=== PATIENT | female | born 1950 | race American Indian/Alaskan Native ===

== ENCOUNTER 2017-09-03 12:39 | Emergency (ER) | payer MEDICARE, OTHER ==
[2017-09-03] MEDS ORDERED: Sodium Chloride 0.9% 10 ML Syringe FLUSH PRN ×2 (13:04→14:12)
[2017-09-03] MEDS ORDERED: Sodium Chloride 0.9% 1,000 ML IV STA (13:04)
[2017-09-03] MEDS ORDERED: Famotidine 20 MG/2 ML SDV IVPUSH ONE (13:05)
[2017-09-03] MEDS ORDERED: Iopamidol 612 MG/ML 100 ML Bottle IVPUSH ONE (14:12)
--- NOTE | 2017-09-03 15:15 | EDM.PDOC ---
ED HPI GENERAL MEDICAL PROBLEM - General Chief Complaint: Abdominal Pain Stated Complaint: [facility] Time Seen by Provider: 09/03/17 12:53 Source of Information: Reports: Patient, EMS, Family History Limitations: Reports: No Limitations - History of Present Illness INITIAL COMMENTS - FREE TEXT/NARRATIVE: The patient presents by [facility] for abdominal pain, nausea, vomiting and diarrhea. This started earlier today. The pain is in the epigastric area. She admits to have a history of gastritis and she is on medicine for this. They took some medicine away last month. She has no fever, chills, cough, congestion, runny nose, chest pain or shortness of breath. EMS gave her morphine and zofran and that helped. Onset: Sudden Duration: Hour(s): Location: Reports: Abdomen Quality: Reports: Sharp Severity: Severe Improves with: Reports: None Worsens with: Reports: None Associated Symptoms: Reports: Nausea/Vomiting. Denies: Chest Pain, Cough, Fever /Chills, Headaches, Shortness of Breath - Related Data Allergies Allergy/AdvReac Type Severity Reaction Status Date / Time Penicillins Allergy Cannot Verified 09/03/17 12:54 Remember Home Meds: Home Meds Hydrocodone/Acetaminophen [Hydrocodon-Acetaminophen 5-325] 1 - 2 each PO Q6HR PRN #20 tablet 09/03/17 [Rx] Ranitidine HCl [Zantac] 150 mg PO DAILY #30 tablet 09/03/17 [Rx] Past Medical History Cardiovascular History: Reports: Afib Social & Family History - Tobacco Use Smoking Status *Q: Current Every Day Smoker Years of Tobacco use: 40 Packs/Tins Daily: 0.5 ED ROS GENERAL - Review of Systems Review Of Systems: See Below Constitutional: Reports: No Symptoms HEENT: Reports: No Symptoms Respiratory: Reports: No Symptoms Cardiovascular: Reports: No Symptoms Endocrine: Reports: No Symptoms GI/Abdominal: Reports: Abdominal Pain, Diarrhea, Nausea, Vomiting : Reports: No Symptoms Musculoskeletal: Reports: No Symptoms ED EXAM, GI/ABD - Physical Exam Exam: See Below Exam Limited By: No Limitations General Appearance: Alert, No Apparent Distress Ears: Normal External Exam Nose: Normal Inspection Head: Atraumatic, Normocephalic Neck: Normal Inspection Respiratory/Chest: No Respiratory Distress, Lungs Clear, Normal Breath Sounds Cardiovascular: Regular Rate, Rhythm, No Edema, No Murmur GI/Abdominal Exam: Soft, No Organomegaly, No Mass, Tender (Mild to moderate tenderness to the epigastric region) Course - Vital Signs Last Recorded V/S: Last Vital Signs Temp 99.1 F 09/03/17 12:51 Pulse 96 09/03/17 12:51 Resp 16 09/03/17 12:51 BP 135/91 H 09/03/17 12:51 Pulse Ox 99 09/03/17 12:51 - Orders/Labs/Meds Orders: Active Orders 24 hr Category Date Time Status Peripheral IV Care [RC] . DIRECTED Care 09/03/17 13:05 Active Abdomen Pelvis w Cont [CT] Stat Exams 09/03/17 13:04 Taken UA W/MICROSCOPIC [URIN] Stat Lab 09/03/17 14:50 Ordered Sodium Chloride 0.9% [Saline Flush] Med 09/03/17 13:04 Active 10 ml FLUSH ASDIRECTED PRN Sodium Chloride 0.9% [Saline Flush] Med 09/03/17 14:12 Active 10 ml FLUSH ONETIME PRN Peripheral IV Insertion Adult [OM.PC] Stat Oth 09/03/17 13:04 Ordered Medication Orders Sodium Chloride (Saline Flush) 10 ml FLUSH ASDIRECTED PRN PRN Reason: Keep Vein Open Last Admin: 09/03/17 13:25 Dose: 10 ml Sodium Chloride (Saline Flush) 10 ml FLUSH ONETIME PRN PRN Reason: IV FLUSH Last Admin: 09/03/17 14:23 Dose: 10 ml Labs: Laboratory Tests 09/03/17 09/03/17 09/03/17 Range/Units 13:18 13:18 13:18 WBC 6.44 (3.98-10.04) K/mm3 RBC 5.19 (3.98-5.22) M/mm3 Hgb 16.4 H (11.2-15.7) gm/L Hct 46.4 H (34.1-44.9) % MCV 89.4 (79.4-94.8) fl MCH 31.6 (25.6-32.2) pg MCHC 35.3 (32.2-35.5) g/dl RDW Std Deviation 44.2 (36.4-46.3) fL Plt Count 278 (182-369) K/mm3 MPV 9.3 L (9.4-12.3) fl Neut % (Auto) 82.5 H (34.0-71.1) % Lymph % (Auto) 12.3 L (19.3-51.7) % Ross % (Auto) 4.2 L (4.7-12.5) % Eos % (Auto) 0.2 L (0.7-5.8) Baso % (Auto) 0.5 (0.1-1.2) % Neut # (Auto) 5.32 (1.56-6.13) K/mm3 Lymph # (Auto) 0.79 L (1.18-3.74) K/mm3 Ross # (Auto) 0.27 (0.24-0.36) K/mm3 Eos # (Auto) 0.01 L (0.04-0.36) K/mm3 Baso # (Auto) 0.03 (0.01-0.08) K/mm3 Sodium 137 (136-145) mEq/L Potassium 4.5 (3.5-5.1) mEq/L Chloride 102 (98-107) mEq/L Carbon Dioxide 25 (21-32) mEq/L Anion Gap 14.5 (5-15) BUN 10 (7-18) mg/dL Creatinine 1.4 H (0.55-1.02) mg/dL Est Cr Clr Drug Dosing 33.14 mL/min Estimated GFR (MDRD) 38 (>60) mL/min BUN/Creatinine Ratio 7.1 L (14-18) Glucose 200 H (80-115) mg/dL Calcium 8.8 (8.5-10.1) mg/dL Total Bilirubin 0.8 (0.2-1.0) mg/dL AST 20 (15-37) U/L ALT 23 (14-59) U/L Alkaline Phosphatase 117 H (46-116) U/L Total Protein 7.3 (6.4-8.2) g/dl Albumin 3.5 (3.4-5.0) g/dl Globulin 3.8 gm/dL Albumin/Globulin Ratio 0.9 L (1-2) Lipase 112 (73-393) U/L Ethyl Alcohol 0.00 (0.00) gm% Meds: Medications Generic Name Dose Route Start Last Admin Trade Name Freq PRN Reason Stop Dose Admin Sodium Chloride 10 ml 09/03/17 13:04 09/03/17 13:25 Saline Flush FLUSH 10 ml ASDIRECTED PRN Administration Keep Vein Open Sodium Chloride 10 ml 09/03/17 14:12 09/03/17 14:23 Saline Flush FLUSH 10 ml ONETIME PRN Administration IV FLUSH Discontinued Medications Generic Name Dose Route Start Last Admin Trade Name Sharon PRN Reason Stop Dose Admin Famotidine 20 mg 09/03/17 13:05 09/03/17 13:25 Pepcid IVPUSH 09/03/17 13:06 20 mg ONETIME ONE Administration Sodium Chloride 1,000 mls @ 1,000 mls/hr 09/03/17 13:04 09/03/17 13:25 Normal Saline IV 09/03/17 14:03 1,000 mls/hr .BOLUS STA Administration Iopamidol 100 ml 09/03/17 14:12 09/03/17 14:23 Isovue-300 (61%) IVPUSH 09/03/17 14:13 80 ml ONETIME ONE Administration - Re-Assessments/Exams Free Text/Narrative Re-Assessment/Exam: 09/03/17 15:15 I ordered an IV NS, labs, UA and a CT of her abdomen and pelvis. Her CBC looks good. Her Creatinine was elevated at 1.4. Her glucose was elevated at 200. Her lipase was negative. Her CT shows mild thickening of the wall of the stomach with hiatal hernia present. Findings may be consistent with gastritis. There is a focal hypodense mass in the left adrenal gland, consistent in appearance with a benign adrenal adenoma. 3.7 cm cyst on the midpole of the left kidney. She feels much better now. I will get her back on zantac. She is on a PPI now. I will also give her something for pain if it comes back. Departure - Departure Time of Disposition: 15:25 Disposition: Home, Self-Care 01 Condition: Good Clinical Impression: Gastritis Qualifiers: Gastritis type: unspecified gastritis Chronicity: acute Gastritis bleeding: without bleeding Qualified Code(s): K29.00 - Acute gastritis without bleeding - Discharge Information *PRESCRIPTION DRUG MONITORING PROGRAM REVIEWED*: No *COPY OF PRESCRIPTION DRUG MONITORING REPORT IN PATIENT DIONISIO: No Prescriptions: Hydrocodone/Acetaminophen [Hydrocodon-Acetaminophen 5-325] 1 - 2 each PO Q6HR PRN #20 tablet PRN Reason: Pain Ranitidine HCl [Zantac] 150 mg PO DAILY #30 tablet Referrals: PCP,None [Primary Care Provider] - Additional Instructions: Keep taking your medicine as prescribed. Take the zantac again. I also gave you something for pain if it gets worse. Follow up with your doctor and please return if you are worse. - My Orders Last 24 Hours: My Active Orders 09/03/17 13:04 Abdomen Pelvis w Cont [CT] Stat Sodium Chloride 0.9% [Saline Flush] 10 ml FLUSH ASDIRECTED PRN Peripheral IV Insertion Adult [OM.PC] Stat 09/03/17 13:05 Peripheral IV Care [RC] . DIRECTED 09/03/17 14:12 Sodium Chloride 0.9% [Saline Flush] 10 ml FLUSH ONETIME PRN 09/03/17 14:50 UA W/MICROSCOPIC [URIN] Stat - Assessment/Plan Last 24 Hours: My Active Orders 09/03/17 13:04 Abdomen Pelvis w Cont [CT] Stat Sodium Chloride 0.9% [Saline Flush] 10 ml FLUSH ASDIRECTED PRN Peripheral IV Insertion Adult [OM.PC] Stat 09/03/17 13:05 Peripheral IV Care [RC] . DIRECTED 09/03/17 14:12 Sodium Chloride 0.9% [Saline Flush] 10 ml FLUSH ONETIME PRN 09/03/17 14:50 UA W/MICROSCOPIC [URIN] Stat
--- NOTE | 2017-09-04 11:01 | CT ---
CT abdomen and pelvis Technique: Multiple axial sections were obtained from above the dome of the diaphragm inferiorly through the pubic symphysis. Intravenous contrast was utilized. No oral contrast has been given. Delayed images were obtained through the bladder. Comparison: No prior abdominal imaging. Findings: Small portion of the visualized lung bases shows nothing acute. Minimal hiatal hernia is noted. Questionable wall thickening within the stomach. Liver shows no focal abnormality. Spleen appears within normal limits. Pal of the left adrenal gland is slightly full which is believed to be incidental. Right adrenal gland is unremarkable. Cyst is noted off the left kidney measuring 4.1 cm in size. Kidneys otherwise are within normal limits. Delayed images show contrast within both distal ureters and within the bladder. Pancreas appears within normal limits. Gallbladder is not visualized. Aorta shows atherosclerotic change which continues into the iliac vessels. No aneurysm is identified. No pelvic mass or adenopathy is seen. Appendix is not visualized with certainty. Bone window settings were reviewed with most prominent finding being degenerative apophyseal changes at L4-L5 and L5-S1. Impression: 1. Questionable wall thickening within the stomach. Difficult to exclude gastritis. Please correlate with the patient's symptoms. 2. Other incidental findings as noted above. Diagnostic code #3 I agree with preliminary report issued by [facility] ([facility] report finalized on 09/03/17, 3:56 PM Central Time)
== END 2017-09-03 15:30 | disposition home or self-care (01) ==
LOC: JD.ED 12:39
DX: K29.00 Acute gastritis without bleeding (principal); F17.210 Nicotine dependence, cigarettes, uncomplicated; I48.91 Unspecified atrial fibrillation; Z88.0 Allergy status to penicillin
CPT/HCPCS: 36415; 74177; 80053; 81001; 83690; 85025; 96361; 96374; 99285; G0480; J3490; J7040; J7050; Q9967; 99284

== ENCOUNTER 2018-06-12 10:54 | Inpatient (IN) | payer MEDICARE, OTHER ==
[2018-06-12] MEDS ORDERED: Sodium Chloride 0.9% 1,000 ML IV ONE ×2 (11:58→13:14)
[2018-06-12] MEDS ORDERED: Ondansetron 4 MG/2 ML SDV IVPUSH ONE (12:04)
[2018-06-12] MEDS ORDERED: HYDROmorphone 1 MG/ML Syringe IVPUSH ONE (12:04)
--- NOTE | 2018-06-12 12:14 | EDM.PDOC ---
ED HPI GENERAL MEDICAL PROBLEM - General Chief Complaint: Lower Extremity Injury/Pain Stated Complaint: R LEG PAIN Time Seen by Provider: 06/12/18 11:15 Source of Information: Reports: Patient History Limitations: Reports: No Limitations - History of Present Illness INITIAL COMMENTS - FREE TEXT/NARRATIVE: 67 yo F h/o DM2, Afib on ASA and Cardizem, COPD comes in today with for worsening R LL pain that started 3 days ago. The pain starts from her R pinky toe where she had 2 ulcers "cleaned out by podiatry" about 1 month ago, radiates up the leg to the thigh. There is increased warmth and erythema to the area, painful to touch. She describes the pain as "110/10", comes and goes, is sharp in nature. Resting is the only thing that makes it better, movement/ walking makes it worse. She denies any recent travel or long car rides, but states she has been resting in bed for the past 3 days. She denies any F/C, V/D , constipation. She also c/o nausea, decreased appetite, and a productive cough x 3-4 weeks. The cough has been getting worse, greenish/yellowish sputum. She is a 1/2 ppd smoker x 53 years. PCP: KANA Grijalva at [facility]. She is a Full Code. Right Lower Leg Pain Score (Numeric/FACES): 8 - Related Data Allergies Allergy/AdvReac Type Severity Reaction Status Date / Time Penicillins Allergy Cannot Verified 06/12/18 11:15 Remember Home Meds: Home Meds Hydrocodone/Acetaminophen [Hydrocodon-Acetaminophen 5-325] 1 - 2 each PO Q6HR PRN #20 tablet 09/03/17 [Rx] Ranitidine HCl [Zantac] 150 mg PO DAILY #30 tablet 09/03/17 [Rx] Albuterol/Ipratropium [Combivent Respimat] 4 gm IH DAILY 06/12/18 [History] Albuterol/Ipratropium [DuoNeb 3.0-0.5 MG/3 ML] 3 ml INH DAILY PRN 06/12/18 [ History] Aspirin 81 mg PO DAILY 06/12/18 [History] Diltiazem HCl [Cardizem] 30 mg PO DAILY 06/12/18 [History] Fish Oil/[place]-3 Fatty Acids [Fish Oil] 1 each PO DAILY 06/12/18 [History] Fluticasone/Salmeterol [Advair 250-50 Diskus] 1 puff INH DAILY 06/12/18 [History ] Gabapentin [Neurontin] 800 mg PO DAILY 06/12/18 [History] Loratadine 10 mg PO DAILY 06/12/18 [History] Metoprolol Succinate [Toprol XL] 25 mg PO DAILY 06/12/18 [History] Mirtazapine 45 mg PO DAILY 06/12/18 [History] Montelukast [Singulair] 10 mg PO DAILY 06/12/18 [History] Pantoprazole [ProTONIX] 40 mg PO DAILY 06/12/18 [History] Vit #76/Iron,Carb/Fa [Prenatabs Rx] 1 each PO DAILY 06/12/18 [History] Venlafaxine [Effexor XR] 150 mg PO DAILY 06/12/18 [History] Past Medical History Cardiovascular History: Reports: Afib Respiratory History: Reports: COPD Dermatologic History: Reports: Other (See Below) Other Dermatologic History: infected toenail Social & Family History - Tobacco Use Smoking Status *Q: Current Every Day Smoker Years of Tobacco use: 50 Packs/Tins Daily: 1 - Alcohol Use Days Per Week of Alcohol Use: 7 Number of Drinks Per Day: 2 Total Drinks Per Week: 14 - Recreational Drug Use Recreational Drug Use: No Review of Systems - Review of Systems Review Of Systems: See Below Constitutional: Reports: No Symptoms. Denies: Chills, Fever Eyes: Reports: No Symptoms Ears: Reports: No Symptoms Nose: Reports: No Symptoms Mouth/Throat: Reports: No Symptoms Respiratory: Reports: Cough, Sputum (yellow-green). Denies: Wheezing, Pleuritic Chest Pain Cardiovascular: Reports: No Symptoms. Denies: Chest Pain, Palpitations GI/Abdominal: Reports: Decreased Appetite, Nausea. Denies: Abdominal Pain, Constipation, Diarrhea, Vomiting Genitourinary: Reports: No Symptoms Musculoskeletal: Reports: No Symptoms Skin: Reports: No Symptoms Neurological: Reports: Difficulty Walking (d/t R leg pain), Weakness. Denies: Headache, Numbness, Tingling ED EXAM, GENERAL - Physical Exam Exam: See Below Exam Limited By: No Limitations General Appearance: Alert, WD/WN, Moderate Distress Eye Exam: Bilateral Eye: EOMI, Normal Inspection, PERRL Ears: Normal External Exam, Hearing Grossly Normal Nose: Normal Inspection, Normal Mucosa, No Blood Throat/Mouth: Normal Oropharynx, Normal Voice, No Airway Compromise Neck: Normal Inspection, Supple, Non-Tender, Full Range of Motion Respiratory/Chest: No Respiratory Distress, No Accessory Muscle Use, Chest Non- Tender, Rales (throughout lung barrera) Cardiovascular: Normal Peripheral Pulses, Regular Rate, Rhythm, No Edema, No Gallop, No JVD, No Murmur, No Rub Peripheral Pulses: 3+: Posterior Tibial (L), Posterior Tibial (R), Dorsalis Pedis (L), Dorsalis Pedis (R) GI/Abdominal: Normal Bowel Sounds, Soft, Non-Tender, No Organomegaly, No Distention, No Abnormal Bruit, No Mass Extremities: Normal Range of Motion, No Pedal Edema, Normal Capillary Refill, Leg Pain (R lower leg), Increased Warmth (R leg, starts from R big toe up to thigh), Redness (R leg, starts from R big toe up to garcia), Other (bandage over removed toenail on L big toe) Psychiatric: Normal Affect, Normal Mood Skin Exam: Warm, Dry, Intact, Erythema (R leg, starts from R big toe up to garcia) , Increased Warmth (R leg, starts from R big toe up to thigh) Course - Vital Signs Last Recorded V/S: Last Vital Signs Temp 97.8 F 06/12/18 11:13 Pulse 94 06/12/18 11:13 Resp 16 06/12/18 11:13 BP 128/83 06/12/18 11:13 Pulse Ox 97 06/12/18 11:13 - Orders/Labs/Meds Orders: Active Orders 24 hr Category Date Time Status Admission Status [Patient Status] [ADT] Routine ADT 06/12/18 14:56 Ordered CULTURE BLOOD [BC] Stat Lab 06/12/18 12:39 Received CULTURE BLOOD [BC] Stat Lab 06/12/18 12:54 Received Blood Culture x2 Reflex Set [OM.PC] Stat Oth 06/12/18 11:58 Ordered Code Status [Resuscitation Status] Stat Resus Stat 06/12/18 15:01 Ordered Labs: Laboratory Tests 06/12/18 06/12/18 06/12/18 Range/Units 12:10 12:10 12:39 WBC 15.98 H (3.98-10.04) K/mm3 RBC 4.48 (3.98-5.22) M/mm3 Hgb 14.2 D (11.2-15.7) gm/L Hct 39.8 (34.1-44.9) % MCV 88.8 (79.4-94.8) fl MCH 31.7 (25.6-32.2) pg MCHC 35.7 H (32.2-35.5) g/dl RDW Std Deviation 42.8 (36.4-46.3) fL Plt Count 215 (182-369) K/mm3 MPV 9.5 (9.4-12.3) fl Neut % (Auto) 88.1 H (34.0-71.1) % Lymph % (Auto) 6.2 L (19.3-51.7) % [place] % (Auto) 5.3 (4.7-12.5) % Eos % (Auto) 0 L (0.7-5.8) Baso % (Auto) 0.1 (0.1-1.2) % Neut # (Auto) 14.08 H (1.56-6.13) K/mm3 Lymph # (Auto) 0.99 L (1.18-3.74) K/mm3 [place] # (Auto) 0.85 H (0.24-0.36) K/mm3 Eos # (Auto) 0.00 L (0.04-0.36) K/mm3 Baso # (Auto) 0.02 (0.01-0.08) K/mm3 Manual Slide Review Abnormal smear Sodium 131 L (136-145) mEq/L Potassium 3.9 (3.5-5.1) mEq/L Chloride 95 L (98-107) mEq/L Carbon Dioxide 24 (21-32) mEq/L Anion Gap 15.9 H (5-15) BUN 17 (7-18) mg/dL Creatinine 1.5 H (0.55-1.02) mg/dL Est Cr Clr Drug Dosing 30.52 mL/min Estimated GFR (MDRD) 35 (>60) mL/min BUN/Creatinine Ratio 11.3 L (14-18) Glucose 108 (80-115) mg/dL Lactic Acid 1.0 (0.4-2.0) mmol/L Calcium 8.6 (8.5-10.1) mg/dL Total Bilirubin 0.8 (0.2-1.0) mg/dL AST 28 (15-37) U/L ALT 23 (14-59) U/L Alkaline Phosphatase 147 H (46-116) U/L C-Reactive Protein 21.6 H* (<1.0) mg/dL Total Protein 7.1 (6.4-8.2) g/dl Albumin 2.7 L (3.4-5.0) g/dl Globulin 4.4 gm/dL Albumin/Globulin Ratio 0.6 L (1-2) Meds: Medications Discontinued Medications Generic Name Dose Route Start Last Admin Trade Name Freq PRN Reason Stop Dose Admin Ceftriaxone Sodium 2 gm 06/12/18 14:49 06/12/18 14:59 Rocephin IVPUSH 06/12/18 14:50 2 gm ONETIME ONE Administration Hydromorphone HCl 0.5 mg 06/12/18 12:04 06/12/18 12:58 Dilaudid IVPUSH 06/12/18 12:05 0.5 mg ONETIME ONE Administration Sodium Chloride 1,000 mls @ 999 mls/hr 06/12/18 11:58 06/12/18 12:59 Normal Saline IV 06/12/18 12:58 999 mls/hr ONETIME ONE Administration Vancomycin HCl 1 gm/ Sodium 250 mls @ 250 mls/hr 06/12/18 12:30 06/12/18 12: 59 Chloride IV 06/12/18 13:29 250 mls/hr ONETIME ONE Administration Sodium Chloride 1,000 mls @ 999 mls/hr 06/12/18 13:14 06/12/18 15:00 Normal Saline IV 06/12/18 14:14 999 mls/hr ONETIME ONE Administration Ondansetron HCl 4 mg 06/12/18 12:04 06/12/18 12:58 Zofran IVPUSH 06/12/18 12:05 4 mg ONETIME ONE Administration - Re-Assessments/Exams Free Text/Narrative Re-Assessment/Exam: 06/12/18 12:06 Ordered CBC, CMP, CRP, Lactic Acid, Blood Cultures Vancomycin 1g Dilaudid 0.5mg, Zofran 4mg IV push, 1L Bolus IV NS CXR 2V, Venous Doppler U/S 06/12/18 13:[address] Mallory and myself- nothing acute seen, hyperinflated likely 2/2 COPD. 06/12/18 13:12 CBC impressive for WBC 15.98, MCHC 35.7, Neut 88.1%, Lymph 6.2% CMP impressive for Na 131, Cl 95, AGap 15.9, Cr 1.5, GFR 35, Alk Phos 147, Albumin 2.7 CRP, Lactic Acid pending 06/12/18 13:15 Ordered another 1L IV NS Bolus 06/12/18 13:42 CRP 21.6 Lactic Acid 1 (WNL) Venous Doppler U/S pending 06/12/18 13:59 Doppler U/S negative for DVT, popliteal 2.63cm cyst present. Erythema and warmth traveling from big toe to above the R knee, with high WBC and CRP, and unable to walk, will likely need to be admitted, will call Dr. Collier. Unable to get through to Dr. Collier. Will try again in a little while. 06/12/18 14:[address] Collier. He has accepted the patient to Med Surg w/ Telemetry for left leg infection. He would like Zosyn to be added to the already given Vanco, however she is allergic to PCN so we will not be able to start. He has instead asked for Rocephin. Departure - Departure Time of Disposition: 15:03 Disposition: Admitted As Inpatient 67 Condition: Fair Clinical Impression: Cellulitis in diabetic foot - Discharge Information *PRESCRIPTION DRUG MONITORING PROGRAM REVIEWED*: Not Applicable *COPY OF PRESCRIPTION DRUG MONITORING REPORT IN PATIENT DIONISIO: Not Applicable Referrals: PCP,None [Primary Care Provider] - Forms: ED Department Discharge - My Orders Last 24 Hours: My Active Orders 06/12/18 11:58 Blood Culture x2 Reflex Set [OM.PC] Stat 06/12/18 12:39 CULTURE BLOOD [BC] Stat 06/12/18 12:54 CULTURE BLOOD [BC] Stat 06/12/18 14:56 Admission Status [Patient Status] [ADT] Routine 06/12/18 15:01 Code Status [Resuscitation Status] Stat - Assessment/Plan Last 24 Hours: My Active Orders 06/12/18 11:58 Blood Culture x2 Reflex Set [OM.PC] Stat 06/12/18 12:39 CULTURE BLOOD [BC] Stat 06/12/18 12:54 CULTURE BLOOD [BC] Stat 06/12/18 14:56 Admission Status [Patient Status] [ADT] Routine 06/12/18 15:01 Code Status [Resuscitation Status] Stat
[2018-06-12] MEDS ORDERED: Vancomycin 500 MG SDV IV SCH (12:15)
--- NOTE | 2018-06-12 13:18 | CR ---
Chest: Two views of the chest were obtained. Comparison: No previous study. Heart size is normal. Tortuous thoracic aorta is seen. Lungs are clear with no acute parenchymal change. Lungs appear slightly hyperinflated suggesting some emphysematous change. Bony structures are within normal limits for the patient's age. Impression: 1. Nothing acute is seen on two-view chest x-ray. Diagnostic code #2
[2018-06-12] MEDS ORDERED: cefTRIAXone 2 GM Vial IVPUSH ONE (14:49)
--- NOTE | 2018-06-12 14:51 | US ---
Right lower extremity deep venous ultrasound: Duplex and color flow imaging was obtained of the right common femoral, proximal greater saphenous, superficial femoral, popliteal, posterior tibial and peroneal veins. Left common femoral vein was also evaluated. Findings: Normal phasic flow, augmentation and compression are seen. Complicated popliteal cyst noted posteriorly on the right side measuring up to 2.6 cm. Normal architecture of a lymph node within the right upper thigh is seen which measures 3.8 cm and has normal echogenic center and hypoechoic rim. Impression: 1. Popliteal cyst. 2. No evidence of deep venous thrombosis within the right lower extremity or within the left common femoral vein. Diagnostic code #2
[2018-06-12] MEDS ORDERED: ACETAMINOPHEN PO PRN (17:03)
[2018-06-12] MEDS ORDERED: Albuterol/Ipratropium 3.0-0.5 MG/3 ML Neb Soln INH PRN (17:03)
[2018-06-12] MEDS ORDERED: HYDROCODONE PO PRN (17:03)
[2018-06-12] MEDS ORDERED: Metoprolol Tartrate 5 MG/5 ML SDV IVPUSH PRN (17:05)
[2018-06-12] MEDS ORDERED: hydrALAZINE 20 MG/ML SDV IVPUSH PRN (17:05)
[2018-06-12] MEDS ORDERED: Acetaminophen/HYDROcodone 325-5 MG Tab PO PRN (17:08)
[2018-06-12] MEDS ORDERED: Polyethylene Glycol 3350 Powder 17 GM Packet PO PRN (17:08)
[2018-06-12] MEDS ORDERED: HYDROmorphone 1 MG/ML Syringe IVPUSH PRN (17:08)
[2018-06-12] MEDS ORDERED: Acetaminophen 325 MG Tab PO PRN (17:08)
[2018-06-12] MEDS ORDERED: LORazepam 2 MG/ML SDV IV PRN (17:08)
[2018-06-12] MEDS ORDERED: Albuterol/Ipratropium 3.0-0.5 MG/3 ML Neb Soln NEB PRN (17:08)
[2018-06-12] MEDS ORDERED: Docusate Sodium 100 MG Cap PO PRN (17:08)
[2018-06-12] MEDS ORDERED: Bisacodyl 5 MG Tab PO PRN (17:08)
[2018-06-12] MEDS ORDERED: Temazepam 15 MG Cap PO PRN (20:59)
[2018-06-12] MEDS: Sodium Chloride 0.9% 1,000 ML IV SCH (21:21)
[2018-06-12] MEDS: Acetaminophen/HYDROcodone 325-5 MG Tab PO PRN (22:43)
--- NOTE | 2018-06-13 00:25 | PCM.HP ---
H&P History of Present Illness - General Date of Service: 06/13/18 Admit Problem/Dx: Admission Diagnosis/Problem Admission Diagnosis/Problem Cellulitis in diabetic foot Source of Information: Patient, Family, Old Records, RN Notes Reviewed History Limitations: Reports: Physical Impairment - History of Present Illness Initial Comments - Free Text/Narative: This is a 67 yo [place]/ female with past medical hx/o Hx/o Afib , COPD/Asthma, HTN, DM2 diet controlled, CKD Stag 2-3, Chronic Pain, Peripheral Neuropathy, Depression, Hx/o Significant Weight Loss and Nicotine Dependence who comes in for worsening right lower extremity pain that started 3 days ago. Her pain starts in her pinky toe and radiates all the way up to her thigh. Her pain is sharp in nature and is associated with warmth and erythema as well as tenderness on palpation. No obvious edema can be appreciated. Her pain worsens with walking or movement but gets better with rest. She denies any fever or chills. Her initial work up in ED shows a CBC remarkable for WBC of 15.98, MCHC of 35.7 , Neutrophils of 88.1%, and Lymphocytes of 6.2%. Her chemistry is significant for Na of 131, Cl of 95, AG of 15.9, Cr of 1.5, Alk Phos of 147, CRP of 21.6, and Albumin of 2.7. Duplex U/S of her left lower leg report reads popliteal cyst. No evidence of DVT within the right lower extremity or within the left common femoral vein. Patient is being admitted primarily for medical treatment of right lower leg cellulitis. She is full code. Right Lower Leg Pain Score (Numeric/FACES): 8 - Related Data Allergies/Adverse Reactions: Allergies Allergy/AdvReac Type Severity Reaction Status Date / Time Penicillins Allergy Cannot Verified 06/12/18 16:13 Remember Home Medications: Home Meds Hydrocodone/Acetaminophen [Hydrocodon-Acetaminophen 5-325] 1 - 2 each PO Q6HR PRN #20 tablet 09/03/17 [Rx] Ranitidine HCl [Zantac] 150 mg PO DAILY #30 tablet 09/03/17 [Rx] Albuterol/Ipratropium [Combivent Respimat] 2 puff IH DAILY 06/12/18 [History] Albuterol/Ipratropium [DuoNeb 3.0-0.5 MG/3 ML] 3 ml INH DAILY PRN 06/12/18 [ History] Aspirin 81 mg PO DAILY 06/12/18 [History] Diltiazem HCl [Cardizem] 30 mg PO DAILY 06/12/18 [History] Fish Oil/[place]-3 Fatty Acids [Fish Oil] 1 each PO DAILY 06/12/18 [History] Fluticasone/Salmeterol [Advair 250-50 Diskus] 1 puff INH DAILY 06/12/18 [History ] Gabapentin [Neurontin] 800 mg PO DAILY 06/12/18 [History] Loratadine 10 mg PO DAILY 06/12/18 [History] Metoprolol Succinate [Toprol XL] 25 mg PO DAILY 06/12/18 [History] Mirtazapine 45 mg PO DAILY 06/12/18 [History] Montelukast [Singulair] 10 mg PO DAILY 06/12/18 [History] Pantoprazole [ProTONIX] 40 mg PO DAILY 06/12/18 [History] Vit #76/Iron,Carb/Fa [Prenatabs Rx] 1 each PO DAILY 06/12/18 [History] Venlafaxine [Effexor XR] 150 mg PO DAILY 06/12/18 [History] Past Medical History HEENT History: Reports: Impaired Vision Other HEENT History: wears glasses Cardiovascular History: Reports: Afib, Angina, High Cholesterol, Hypertension Respiratory History: Reports: Asthma, Bronchitis, Recurrent, COPD Gastrointestinal History: Reports: Chronic Constipation Genitourinary History: Reports: Chronic Renal Insuffiency, Renal Calculus 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: Musculoskeletal History: Reports: Arthritis, Osteoporosis Psychiatric History: Reports: Bipolar Endocrine/Metabolic History: Reports: Diabetes, Type II Other Endocrine/Metabolic History: reports was diabetic before lost weight 1 year ago Dermatologic History: Reports: Eczema, Other (See Below) Other Dermatologic History: infected toenail, diabetic foot ulcers - Past Surgical History HEENT Surgical History: Reports: None Social & Family History - Family History Family Medical History: Noncontributory - Tobacco Use Smoking Status *Q: Current Every Day Smoker Years of Tobacco use: 43 Packs/Tins Daily: 0.5 Used Tobacco, but Quit: No Second Hand Smoke Exposure: Yes - Caffeine Use Caffeine Use: Reports: Coffee Other Caffeine Use: 1 pot a day - Alcohol Use Days Per Week of Alcohol Use: 7 Number of Drinks Per Day: 2 Total Drinks Per Week: 14 - Recreational Drug Use Recreational Drug Use: No H&P Review of Systems - Review of Systems: Review Of Systems: ROS reveals no pertinent complaints other than HPI. Exam - Exam Exam: See Below - Vital Signs Vital Signs: Last Vital Signs Temp 37.1 C 06/12/18 20:14 Pulse 73 06/12/18 20:14 Resp 17 06/12/18 20:14 BP 98/51 L 06/12/18 20:14 Pulse Ox 94 L 06/12/18 20:14 Weight: 55.384 kg - Exam General: Alert, Oriented, Cooperative HEENT: Conjunctiva Clear, EACs Clear, EOMI, Hearing Intact, Mucosa Moist & [place] , Nares Patent, Normal Nasal Septum, Posterior Pharynx Clear, Pupils Equal, Pupils Reactive Neck: Supple, Trachea Midline Lungs: Normal Respiratory Effort, Rhonchi Cardiovascular: Regular Rate, Regular Rhythm GI/Abdominal Exam: Normal Bowel Sounds, Soft, Non-Tender, No Organomegaly, No Distention, No Abnormal Bruit, No Mass, Pelvis Stable (Female) Exam: Deferred Rectal (Female) Exam: Deferred Back Exam: Normal Inspection, Full Range of Motion Extremities: Normal Range of Motion, Non-Tender, No Pedal Edema, Normal Capillary Refill, Leg Pain, Limited Range of Motion (right lower extremity), Increased Warmth (right lower extremity), Redness. No: Joint Swelling Peripheral Pulses: 2+: Posterior Tibial (L), Posterior Tibial (R), Dorsalis Pedis (L), Dorsalis Pedis (R) Skin: Warm, Dry Skin Alteration Location (Drawings Not To Scale): 1 - fungal infection of the toe nails. numerous chronic skin ulcers 2 - mild erythema w/o obvious edema. warm to the touch Neuro Extensive - Mental Status: Oriented x3, Normal Cognition, Memory Intact Neuro Extensive - Motor, Sensory, Reflexes: CN II-XII Intact, Normal Gait Psychiatric: Alert, Normal Affect, Normal Mood - Patient Data Lab Results Last 24 hrs: Laboratory Results - last 24 hr 06/12/18 06/12/18 06/12/18 Range/Units 12:10 12:10 12:39 WBC 15.98 H (3.98-10.04) K/mm3 RBC 4.48 (3.98-5.22) M/mm3 Hgb 14.2 D (11.2-15.7) gm/L Hct 39.8 (34.1-44.9) % MCV 88.8 (79.4-94.8) fl MCH 31.7 (25.6-32.2) pg MCHC 35.7 H (32.2-35.5) g/dl RDW Std Deviation 42.8 (36.4-46.3) fL Plt Count 215 (182-369) K/mm3 MPV 9.5 (9.4-12.3) fl Neut % (Auto) 88.1 H (34.0-71.1) % Lymph % (Auto) 6.2 L (19.3-51.7) % Forrest % (Auto) 5.3 (4.7-12.5) % Eos % (Auto) 0 L (0.7-5.8) Baso % (Auto) 0.1 (0.1-1.2) % Neut # (Auto) 14.08 H (1.56-6.13) K/mm3 Lymph # (Auto) 0.99 L (1.18-3.74) K/mm3 Forrest # (Auto) 0.85 H (0.24-0.36) K/mm3 Eos # (Auto) 0.00 L (0.04-0.36) K/mm3 Baso # (Auto) 0.02 (0.01-0.08) K/mm3 Manual Slide Review Abnormal smear Sodium 131 L (136-145) mEq/L Potassium 3.9 (3.5-5.1) mEq/L Chloride 95 L (98-107) mEq/L Carbon Dioxide 24 (21-32) mEq/L Anion Gap 15.9 H (5-15) BUN 17 (7-18) mg/dL Creatinine 1.5 H (0.55-1.02) mg/dL Est Cr Clr Drug Dosing 30.52 mL/min Estimated GFR (MDRD) 35 (>60) mL/min BUN/Creatinine Ratio 11.3 L (14-18) Glucose 108 (80-115) mg/dL Lactic Acid 1.0 (0.4-2.0) mmol/L Calcium 8.6 (8.5-10.1) mg/dL Total Bilirubin 0.8 (0.2-1.0) mg/dL AST 28 (15-37) U/L ALT 23 (14-59) U/L Alkaline Phosphatase 147 H (46-116) U/L C-Reactive Protein 21.6 H* (<1.0) mg/dL Total Protein 7.1 (6.4-8.2) g/dl Albumin 2.7 L (3.4-5.0) g/dl Globulin 4.4 gm/dL Albumin/Globulin Ratio 0.6 L (1-2) Result Diagrams: 06/13/18 05:54 06/13/18 05:54 Problem List Initiated/Reviewed/Updated: Yes Orders Last 24hrs: Active Orders 24 hr Category Date Time Status Admission Status [Patient Status] [ADT] Routine ADT 06/12/18 14:56 Active Height and Weight [RC] 04 Care 06/12/18 17:08 Active Intake and Output [RC] QSHIFT Care 06/12/18 17:08 Active VTE/DVT Education [RC] , Care 06/12/18 17:08 Active Vital Signs [RC] Q4HR Care 06/12/18 17:08 Active 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 [CONS] Cons 06/12/18 17:08 Active Routine Consult to Spiritual Care [CONS] Routine Cons 06/12/18 17:08 Active OT Evaluation and Treatment [CONS] Routine Cons 06/12/18 17:08 Active PT Evaluation and Treatment [CONS] Routine Cons 06/12/18 17:08 Active Regular Diet [DIET] Diet 06/12/18 Dinner Active BASIC METABOLIC PANEL,BMP [CHEM] AM Lab 06/13/18 05:11 Ordered BASIC METABOLIC PANEL,BMP [CHEM] AM Lab 06/14/18 05:11 Ordered BASIC METABOLIC PANEL,BMP [CHEM] AM Lab 06/15/18 05:11 Ordered C-REACTIVE PROTEIN [CHEM] AM Lab 06/13/18 05:11 Ordered C-REACTIVE PROTEIN [CHEM] AM Lab 06/14/18 05:11 Ordered C-REACTIVE PROTEIN [CHEM] AM Lab 06/15/18 05:11 Ordered CBC WITH AUTO DIFF [HEME] AM Lab 06/13/18 05:11 Ordered CBC WITH AUTO DIFF [HEME] AM Lab 06/14/18 05:11 Ordered CBC WITH AUTO DIFF [HEME] AM Lab 06/15/18 05:11 Ordered CULTURE BLOOD [BC] Stat Lab 06/12/18 12:39 Received CULTURE BLOOD [BC] Stat Lab 06/12/18 12:54 Received MAGNESIUM [CHEM] AM Lab 06/13/18 05:11 Ordered MAGNESIUM [CHEM] AM Lab 06/14/18 05:11 Ordered MAGNESIUM [CHEM] AM Lab 06/15/18 05:11 Ordered Acetaminophen [Tylenol] Med 06/12/18 17:08 Active 650 mg PO Q4H PRN Acetaminophen/HYDROcodone [[place] 325-5 MG] Med 06/12/18 18:15 Active 1 - 2 tab PO Q6H PRN Acetaminophen/HYDROcodone [[place] 325-5 MG] Med 06/12/18 17:08 Active 1 tab PO Q4H PRN Albuterol/Ipratropium Med 06/13/18 09:00 Pending 4 gm IH DAILY Albuterol/Ipratropium [DuoNeb 3.0-0.5 MG/3 ML] Med 06/12/18 17:03 Active 3 ml INH DAILY PRN Albuterol/Ipratropium [DuoNeb 3.0-0.5 MG/3 ML] Med 06/12/18 17:08 Active 3 ml NEB Q4H PRN Aspirin [Halfprin] Med 06/13/18 09:00 Active 81 mg PO DAILY Bisacodyl [Dulcolax] Med 06/12/18 17:08 Active 5 mg PO DAILY PRN Diltiazem IR [Cardizem] Med 06/13/18 09:00 Active 30 mg PO DAILY Docusate Sodium [Colace] Med 06/12/18 17:08 Active 100 mg PO BID PRN Docusate Sodium/Sennosides [Senna Plus] Med 06/12/18 17:08 Active 1 tab PO BID PRN Enoxaparin [Lovenox] Med 06/13/18 09:00 Active 40 mg SUBCUT DAILY Famotidine [Pepcid] Med 06/13/18 21:00 Active 20 mg PO BEDTIME Fish Oil/Paupack-3 Fatty Acids [Fish Oil] Med 06/13/18 09:00 Pending 1 each PO DAILY Gabapentin [Neurontin] Med 06/13/18 09:00 Active 200 mg PO DAILY Gabapentin [Neurontin] Med 06/13/18 09:00 Active 600 mg PO DAILY HYDROmorphone [Dilaudid] Med 06/12/18 17:08 Active 0.5 mg IVPUSH Q2H PRN LORazepam [Ativan] Med 06/12/18 17:08 Active 0.25 mg IV Q6H PRN Loratadine [Claritin] Med 06/13/18 09:00 Active 10 mg PO DAILY Metoprolol Succinate [Toprol XL] Med 06/13/18 09:00 Active 25 mg PO DAILY Metoprolol Tartrate [Lopressor] Med 06/12/18 17:05 Active 5 mg IVPUSH Q4H PRN Mirtazapine [Remeron] Med 06/13/18 09:00 Active 45 mg PO DAILY Mometasone/Formoterol [Dulera 200-5 MCG] Med 06/13/18 09:00 Active 0 puff IH DAILY Montelukast [Singulair] Med 06/13/18 09:00 Active 10 mg PO DAILY Pantoprazole [ProTONIX] Med 06/13/18 07:00 Active 40 mg PO DAILY@0700 Pharmacy to Dose - Magnesium R [Pharmacy to Dose - Med 06/12/18 17:15 Pending Magnesium Replacement] 1 dose .XX ASDIRECTED Pharmacy to Dose - Potassium R [Pharmacy to Dose - Med 06/12/18 17:15 Pending Potassium Replacement] 1 dose .XX ASDIRECTED Polyethylene Glycol 3350 [MiraLAX] Med 06/12/18 17:08 Active 17 gm PO DAILY PRN Sodium Chloride 0.9% [Normal Saline] 1,000 ml Med 06/12/18 18:00 Active IV ASDIRECTED Temazepam [Restoril] Med 06/12/18 20:59 Active 15 mg PO BEDTIME PRN Venlafaxine [Effexor XR] Med 06/13/18 09:00 Active 150 mg PO DAILY hydrALAZINE [Apresoline] Med 06/12/18 17:05 Active 20 mg IVPUSH Q4H PRN Blood Culture x2 Reflex Set [OM.PC] Stat Oth 06/12/18 11:58 Ordered Code Status [Resuscitation Status] Stat Resus Stat 06/12/18 15:01 Ordered Medication Orders Acetaminophen (Tylenol) 650 mg PO Q4H PRN PRN Reason: Pain (Mild 1-3)/fever Hydrocodone Bitart/Acetaminophen ([place] 325-5 Mg) 1 tab PO Q4H PRN PRN Reason: Pain (moderate 4-6) Last Admin: 06/12/18 17:53 Dose: 1 tab Hydrocodone Bitart/Acetaminophen ([place] 325-5 Mg) 1 - 2 tab PO Q6H PRN PRN Reason: PAIN Last Admin: 06/12/18 22:43 Dose: 2 tab Albuterol/Ipratropium (Duoneb 3.0-0.5 Mg/3 Ml) 3 ml INH DAILY PRN PRN Reason: Dyspnea Albuterol/Ipratropium (Duoneb 3.0-0.5 Mg/3 Ml) 3 ml NEB Q4H PRN PRN Reason: Shortness Of Breath/wheezing Aspirin (Halfprin) 81 mg PO DAILY [facility] Bisacodyl (Dulcolax) 5 mg PO DAILY PRN PRN Reason: Constipation Last Admin: 06/12/18 18:27 Dose: 5 mg Diltiazem HCl (Cardizem) 30 mg PO DAILY [facility] Docusate Sodium (Colace) 100 mg PO BID PRN PRN Reason: Constipation Last Admin: 06/12/18 18:27 Dose: 100 mg Enoxaparin Sodium (Lovenox) 40 mg SUBCUT DAILY [facility] Famotidine (Pepcid) 20 mg PO BEDTIME [facility] Gabapentin (Neurontin) 200 mg PO DAILY [facility] Gabapentin (Neurontin) 600 mg PO DAILY [facility] Hydralazine HCl (Apresoline) 20 mg IVPUSH Q4H PRN PRN Reason: Hypertension Stop: 06/13/18 09:00 Hydromorphone HCl (Dilaudid) 0.5 mg IVPUSH Q2H PRN PRN Reason: Pain (severe 7-10) Sodium Chloride (Normal Saline) 1,000 mls @ 100 mls/hr IV ASDIRECTED [facility] Last Admin: 06/12/18 21:21 Dose: 100 mls/hr Loratadine (Claritin) 10 mg PO DAILY [facility] Lorazepam (Ativan) 0.25 mg IV Q6H PRN PRN Reason: Anxiety Magnesium Sulfate (Pharmacy To Dose - Magnesium Replacement) 1 dose .XX ASDIRECTED [facility] Stop: 06/14/18 09:00 Metoprolol Succinate (Toprol Xl) 25 mg PO DAILY [facility] Metoprolol Tartrate (Lopressor) 5 mg IVPUSH Q4H PRN PRN Reason: Tachycardia Stop: 06/14/18 09:00 Mirtazapine (Remeron) 45 mg PO DAILY [facility] Mometasone Furoate/Formoterol Fumar (Dulera 200-5 Mcg) 0 puff IH DAILY [facility] Montelukast Sodium (Singulair) 10 mg PO DAILY [facility] Non-Formulary Medication (Albuterol/Ipratropium) 4 gm IH DAILY [facility] Non-Formulary Medication (Fish Oil/[place]-3 Fatty Acids [Fish Oil]) 1 each PO DAILY [facility] Pantoprazole Sodium (Protonix) 40 mg PO DAILY@0700 [facility] Polyethylene Glycol (Miralax) 17 gm PO DAILY PRN PRN Reason: Constipation Potassium Chloride (Pharmacy To Dose - Potassium Replacement) 1 dose .XX ASDIRECTED [facility] Stop: 06/14/18 09:11 Senna/Docusate Sodium (Senna Plus) 1 tab PO BID PRN PRN Reason: Constipation Temazepam (Restoril) 15 mg PO BEDTIME PRN PRN Reason: Insomnia Last Admin: 06/12/18 21:21 Dose: 15 mg Venlafaxine HCl (Effexor Xr) 150 mg PO DAILY [facility] Assessment/Plan Comment:: Assessment/Plan: Acute: Right Lower Extremity Cellulitis - Carries a hx/o DM - Took herself off diabetic medications after she lost a significant amount of weight - Has chronic ulcers on distal toes - WBC 15.98; CRP 21.6 - She follows Dr. Oliveira in [place] - streak of erythema on right lower extremity but w/o obvious edema - IV Vancomycin and Rocephin for pharmacy to dose - DDx: Onychomychosis and PVD - Consider arterial study Chronic: Hx/o Afib COPD/Asthma HTN DM2 CKD Stag 2-3 Chronic Pain Peripheral Neuropathy Depression Hx/o Weight Loss Nicotine Dependence Plan: Admit to [facility] Resume Home Meds Routine AM Labs IV Antibiotics A1C level PT/OT consult SW/CM for d/c planning Code status: 1
[2018-06-13] MEDS: Acetaminophen/HYDROcodone 325-5 MG Tab PO PRN (03:06)
[2018-06-13] MEDS ORDERED: Pantoprazole 40 MG Tab.CR PO SCH (07:00)
[2018-06-13] MEDS ORDERED: Mirtazapine 30 MG Tab PO SCH (09:00)
[2018-06-13] MEDS ORDERED: Loratadine 10 MG Tab PO SCH (09:00)
[2018-06-13] MEDS ORDERED: Diltiazem IR 30 MG Tab PO SCH (09:00)
[2018-06-13] MEDS ORDERED: Fish Oil/Omega-3 Fatty Acids 1 Gm Cap PO SCH (09:00)
[2018-06-13] MEDS ORDERED: Metoprolol Succinate 25 MG Tab.ER PO SCH (09:00)
[2018-06-13] MEDS ORDERED: Gabapentin 100 MG Cap PO SCH (09:00)
[2018-06-13] MEDS ORDERED: Montelukast 10 MG Tab PO SCH (09:00)
[2018-06-13] MEDS ORDERED: Formoterol/Mometasone 200-5 MCG 8.8 GM Inhaler IH SCH (09:00)
[2018-06-13] MEDS ORDERED: Aspirin 81 MG Tab.EC PO SCH (09:00)
[2018-06-13] MEDS ORDERED: Venlafaxine 75 MG Cap.ER PO SCH (09:00)
[2018-06-13] MEDS ORDERED: Non-Formulary Medication 1 Each (Albuterol/Ipratropium 4 GM) IH SCH (09:00)
[2018-06-13] MEDS ORDERED: Enoxaparin 40 MG/0.4 ML Syringe SUBCUT SCH (09:00)
[2018-06-13] MEDS ORDERED: Gabapentin 600 MG Tab PO SCH (09:00)
--- NOTE | 2018-06-13 09:15 | PCM.PN ---
- General Info Date of Service: 06/13/18 Admission Dx/Problem (Free Text): Admission Diagnosis/Problem Admission Diagnosis/Problem Cellulitis in diabetic foot Subjective Update: Follow Up Functional Status: Reports: Pain Controlled, Tolerating Diet, Urinating. Denies : New Symptoms - Patient Data Vitals - Most Recent: Last Vital Signs Temp 36.5 C 06/13/18 07:12 Pulse 63 06/13/18 07:12 Resp 16 06/13/18 07:12 BP 93/69 06/13/18 07:12 Pulse Ox 100 06/13/18 08:26 Weight - Most Recent: 56.331 kg I&O - Last 24 Hours: Intake & Output 06/12/18 06/13/18 06/13/18 22:59 06:59 14:59 Intake Total 320 1242 Output Total 600 Balance 320 642 Lab Results Last 24 Hours: Laboratory Results - last 24 hr 06/12/18 06/12/18 06/12/18 Range/Units 12:10 12:10 12:39 WBC 15.98 H (3.98-10.04) K/mm3 RBC 4.48 (3.98-5.22) M/mm3 Hgb 14.2 D (11.2-15.7) gm/L Hct 39.8 (34.1-44.9) % MCV 88.8 (79.4-94.8) fl MCH 31.7 (25.6-32.2) pg MCHC 35.7 H (32.2-35.5) g/dl RDW Std Deviation 42.8 (36.4-46.3) fL Plt Count 215 (182-369) K/mm3 MPV 9.5 (9.4-12.3) fl Neut % (Auto) 88.1 H (34.0-71.1) % Lymph % (Auto) 6.2 L (19.3-51.7) % [place] % (Auto) 5.3 (4.7-12.5) % Eos % (Auto) 0 L (0.7-5.8) Baso % (Auto) 0.1 (0.1-1.2) % Neut # (Auto) 14.08 H (1.56-6.13) K/mm3 Lymph # (Auto) 0.99 L (1.18-3.74) K/mm3 [place] # (Auto) 0.85 H (0.24-0.36) K/mm3 Eos # (Auto) 0.00 L (0.04-0.36) K/mm3 Baso # (Auto) 0.02 (0.01-0.08) K/mm3 Manual Slide Review Abnormal smear Sodium 131 L (136-145) mEq/L Potassium 3.9 (3.5-5.1) mEq/L Chloride 95 L (98-107) mEq/L Carbon Dioxide 24 (21-32) mEq/L Anion Gap 15.9 H (5-15) BUN 17 (7-18) mg/dL Creatinine 1.5 H (0.55-1.02) mg/dL Est Cr Clr Drug Dosing 30.52 mL/min Estimated GFR (MDRD) 35 (>60) mL/min BUN/Creatinine Ratio 11.3 L (14-18) Glucose 108 (80-115) mg/dL Lactic Acid 1.0 (0.4-2.0) mmol/L Calcium 8.6 (8.5-10.1) mg/dL Magnesium (1.8-2.4) mg/dl Total Bilirubin 0.8 (0.2-1.0) mg/dL AST 28 (15-37) U/L ALT 23 (14-59) U/L Alkaline Phosphatase 147 H (46-116) U/L C-Reactive Protein 21.6 H* (<1.0) mg/dL Total Protein 7.1 (6.4-8.2) g/dl Albumin 2.7 L (3.4-5.0) g/dl Globulin 4.4 gm/dL Albumin/Globulin Ratio 0.6 L (1-2) Triglycerides (<150) mg/dL Cholesterol (<200) mg/dL LDL Cholesterol Direct (<100) mg/dL HDL Cholesterol (40-59) mg/dL 06/13/18 06/13/18 Range/Units 05:54 05:54 WBC 9.65 (3.98-10.04) K/mm3 RBC 3.85 L (3.98-5.22) M/mm3 Hgb 12.2 D (11.2-15.7) gm/L Hct 34.8 (34.1-44.9) % MCV 90.4 (79.4-94.8) fl MCH 31.7 (25.6-32.2) pg MCHC 35.1 (32.2-35.5) g/dl RDW Std Deviation 42.9 (36.4-46.3) fL Plt Count 188 (182-369) K/mm3 MPV 9.9 (9.4-12.3) fl Neut % (Auto) 82.6 H (34.0-71.1) % Lymph % (Auto) 8.1 L (19.3-51.7) % [place] % (Auto) 8.0 (4.7-12.5) % Eos % (Auto) 0.7 (0.7-5.8) Baso % (Auto) 0.3 (0.1-1.2) % Neut # (Auto) 7.97 H (1.56-6.13) K/mm3 Lymph # (Auto) 0.78 L (1.18-3.74) K/mm3 [place] # (Auto) 0.77 H (0.24-0.36) K/mm3 Eos # (Auto) 0.07 (0.04-0.36) K/mm3 Baso # (Auto) 0.03 (0.01-0.08) K/mm3 Manual Slide Review Normal smear Sodium 134 L (136-145) mEq/L Potassium 3.6 (3.5-5.1) mEq/L Chloride 102 (98-107) mEq/L Carbon Dioxide 21 (21-32) mEq/L Anion Gap 14.6 (5-15) BUN 16 (7-18) mg/dL Creatinine 1.2 H (0.55-1.02) mg/dL Est Cr Clr Drug Dosing 38.15 mL/min Estimated GFR (MDRD) 45 (>60) mL/min BUN/Creatinine Ratio 13.3 L (14-18) Glucose 78 L (80-115) mg/dL Lactic Acid (0.4-2.0) mmol/L Calcium 7.7 L (8.5-10.1) mg/dL Magnesium 1.8 (1.8-2.4) mg/dl Total Bilirubin (0.2-1.0) mg/dL AST (15-37) U/L ALT (14-59) U/L Alkaline Phosphatase (46-116) U/L C-Reactive Protein 17.0 H* (<1.0) mg/dL Total Protein (6.4-8.2) g/dl Albumin (3.4-5.0) g/dl Globulin gm/dL Albumin/Globulin Ratio (1-2) Triglycerides 168 H (<150) mg/dL Cholesterol 135 (<200) mg/dL LDL Cholesterol Direct 69 (<100) mg/dL HDL Cholesterol 39.0 L (40-59) mg/dL Zack Results Last 24 Hours: Microbiology 06/12/18 12:54 Anaerobic Blood Culture - Final Blood - Venous - Lab Draw Med Orders - Current: Current Medications Acetaminophen (Tylenol) 650 mg PO Q4H PRN PRN Reason: Pain (Mild 1-3)/fever Hydrocodone Bitart/Acetaminophen ([place] 325-5 Mg) 1 - 2 tab PO Q6H PRN PRN Reason: PAIN Last Admin: 06/13/18 03:06 Dose: 2 tab Albuterol/Ipratropium (Duoneb 3.0-0.5 Mg/3 Ml) 3 ml INH DAILY PRN PRN Reason: Dyspnea Last Admin: 06/13/18 08:37 Dose: 3 ml Albuterol/Ipratropium (Duoneb 3.0-0.5 Mg/3 Ml) 3 ml NEB Q4H PRN PRN Reason: Shortness Of Breath/wheezing Aspirin (Halfprin) 81 mg PO DAILY [facility] Last Admin: 06/13/18 08:49 Dose: 81 mg Bisacodyl (Dulcolax) 5 mg PO DAILY PRN PRN Reason: Constipation Last Admin: 06/12/18 18:27 Dose: 5 mg Diltiazem HCl (Cardizem) 30 mg PO DAILY [facility] Last Admin: 06/13/18 08:48 Dose: 30 mg Docusate Sodium (Colace) 100 mg PO BID PRN PRN Reason: Constipation Last Admin: 06/12/18 18:27 Dose: 100 mg Enoxaparin Sodium (Lovenox) 40 mg SUBCUT DAILY [facility] Last Admin: 06/13/18 08:52 Dose: 40 mg Famotidine (Pepcid) 20 mg PO BEDTIME [facility] Fish Oil (Fish Oil) 1 gm PO DAILY [facility] Last Admin: 06/13/18 08:50 Dose: 1 gm Gabapentin (Neurontin) 200 mg PO DAILY [facility] Last Admin: 06/13/18 08:51 Dose: 200 mg Gabapentin (Neurontin) 600 mg PO DAILY [facility] Last Admin: 06/13/18 08:50 Dose: 600 mg Hydromorphone HCl (Dilaudid) 0.5 mg IVPUSH Q2H PRN PRN Reason: Pain (severe 7-10) Sodium Chloride (Normal Saline) 1,000 mls @ 100 mls/hr IV ASDIRECTED [facility] Last Admin: 06/12/18 21:21 Dose: 100 mls/hr Loratadine (Claritin) 10 mg PO DAILY [facility] Last Admin: 06/13/18 08:51 Dose: 10 mg Lorazepam (Ativan) 0.25 mg IV Q6H PRN PRN Reason: Anxiety Magnesium Sulfate (Pharmacy To Dose - Magnesium Replacement) 1 dose .XX ASDIRECTED [facility] Stop: 06/14/18 09:00 Metoprolol Succinate (Toprol Xl) 25 mg PO DAILY [facility] Metoprolol Tartrate (Lopressor) 5 mg IVPUSH Q4H PRN PRN Reason: Tachycardia Stop: 06/14/18 09:00 Mirtazapine (Remeron) 45 mg PO DAILY [facility] Last Admin: 06/13/18 08:51 Dose: 45 mg Mometasone Furoate/Formoterol Fumar (Dulera 200-5 Mcg) 0 puff IH DAILY [facility] Last Admin: 06/13/18 08:21 Dose: 2 puff Montelukast Sodium (Singulair) 10 mg PO DAILY [facility] Last Admin: 06/13/18 08:48 Dose: 10 mg Pantoprazole Sodium (Protonix) 40 mg PO DAILY@0700 [facility] Last Admin: 06/13/18 06:27 Dose: 40 mg Polyethylene Glycol (Miralax) 17 gm PO DAILY PRN PRN Reason: Constipation Potassium Chloride (Pharmacy To Dose - Potassium Replacement) 1 dose .XX ASDIRECTED [facility] Stop: 06/14/18 09:11 Senna/Docusate Sodium (Senna Plus) 1 tab PO BID PRN PRN Reason: Constipation Temazepam (Restoril) 15 mg PO BEDTIME PRN PRN Reason: Insomnia Last Admin: 06/12/18 21:21 Dose: 15 mg Venlafaxine HCl (Effexor Xr) 150 mg PO DAILY [facility] Last Admin: 06/13/18 08:49 Dose: 150 mg Discontinued Medications Hydrocodone Bitart/Acetaminophen ([place] 325-5 Mg) 1 tab PO Q4H PRN PRN Reason: Pain (moderate 4-6) Last Admin: 06/12/18 17:53 Dose: 1 tab Ceftriaxone Sodium (Rocephin) 2 gm IVPUSH ONETIME ONE Stop: 06/12/18 14:50 Last Admin: 06/12/18 14:59 Dose: 2 gm Hydralazine HCl (Apresoline) 20 mg IVPUSH Q4H PRN PRN Reason: Hypertension Stop: 06/13/18 09:00 Hydromorphone HCl (Dilaudid) 0.5 mg IVPUSH ONETIME ONE Stop: 06/12/18 12:05 Last Admin: 06/12/18 12:58 Dose: 0.5 mg Sodium Chloride (Normal Saline) 1,000 mls @ 999 mls/hr IV ONETIME ONE Stop: 06/12/18 12:58 Last Admin: 06/12/18 12:59 Dose: 999 mls/hr Vancomycin HCl 1 gm/ Sodium (Chloride) 250 mls @ 250 mls/hr IV ONETIME ONE Stop: 06/12/18 13:29 Last Admin: 06/12/18 12:59 Dose: 250 mls/hr Sodium Chloride (Normal Saline) 1,000 mls @ 999 mls/hr IV ONETIME ONE Stop: 06/12/18 14:14 Last Admin: 06/12/18 15:00 Dose: 999 mls/hr Non-Formulary Medication (Acetaminophen/Hydrocodone) 1 - 2 each PO Q6HR PRN PRN Reason: Pain Non-Formulary Medication (Albuterol/Ipratropium) 4 gm IH DAILY [facility] Ondansetron HCl (Zofran) 4 mg IVPUSH ONETIME ONE Stop: 06/12/18 12:05 Last Admin: 06/12/18 12:58 Dose: 4 mg - My Orders Last 24 Hours: My Active Orders 06/12/18 17:03 Albuterol/Ipratropium [DuoNeb 3.0-0.5 MG/3 ML] 3 ml INH DAILY PRN 06/12/18 17:05 Metoprolol Tartrate [Lopressor] 5 mg IVPUSH Q4H PRN 06/12/18 17:08 Height and Weight [RC] 04 Intake and Output [RC] 0400 VTE/DVT Education [RC] DAILY Vital Signs [RC] Q4HR Consult to Case Management/Applications Engineering Manager [CONS] Routine Consult to Spiritual Care [CONS] Routine OT Evaluation and Treatment [CONS] Routine PT Evaluation and Treatment [CONS] Routine Acetaminophen [Tylenol] 650 mg PO Q4H PRN Albuterol/Ipratropium [DuoNeb 3.0-0.5 MG/3 ML] 3 ml NEB Q4H PRN Bisacodyl [Dulcolax] 5 mg PO DAILY PRN Docusate Sodium [Colace] 100 mg PO BID PRN Docusate Sodium/Sennosides [Senna Plus] 1 tab PO BID PRN HYDROmorphone [Dilaudid] 0.5 mg IVPUSH Q2H PRN LORazepam [Ativan] 0.25 mg IV Q6H PRN Polyethylene Glycol 3350 [MiraLAX] 17 gm PO DAILY PRN 06/12/18 17:09 RT Aerosol Therapy [RC] ASDIRECTED 06/12/18 17:15 Pharmacy to Dose - Magnesium R [Pharmacy to Dose - Magnesium Replacement] 1 dose .XX ASDIRECTED Pharmacy to Dose - Potassium R [Pharmacy to Dose - Potassium Replacement] 1 dose .XX ASDIRECTED 06/12/18 18:00 Sodium Chloride 0.9% [Normal Saline] 1,000 ml IV ASDIRECTED 06/12/18 18:15 Acetaminophen/HYDROcodone [[place] 325-5 MG] 1 - 2 tab PO Q6H PRN 06/12/18 20:59 Temazepam [Restoril] 15 mg PO BEDTIME PRN 06/12/18 Dinner Regular Diet [DIET] 06/13/18 00:45 MICROALBUMIN/CREAT RATIO,URINE [URCHEM] Routine 06/13/18 01:21 CORTISOL [REF] Stat 06/13/18 05:39 Up With Assistance [RC] ASDIRECTED 06/13/18 05:54 A1C [GLYCOSYLATED HEMOGLOBIN,HGBA1C] [CHEM] AM BASIC METABOLIC PANEL,BMP [CHEM] AM C-REACTIVE PROTEIN [CHEM] AM LIPID PANEL [CHEM] AM MAGNESIUM [CHEM] AM URIC ACID [CHEM] AM 06/13/18 07:00 Pantoprazole [ProTONIX] 40 mg PO DAILY@0700 06/13/18 09:00 Aspirin [Halfprin] 81 mg PO DAILY Diltiazem IR [Cardizem] 30 mg PO DAILY Enoxaparin [Lovenox] 40 mg SUBCUT DAILY Fish Oil/[place]-3 Fatty Acids [Fish Oil] 1 gm PO DAILY Gabapentin [Neurontin] 200 mg PO DAILY Gabapentin [Neurontin] 600 mg PO DAILY Loratadine [Claritin] 10 mg PO DAILY Metoprolol Succinate [Toprol XL] 25 mg PO DAILY Mirtazapine [Remeron] 45 mg PO DAILY Mometasone/Formoterol [Dulera 200-5 MCG] 0 puff IH DAILY Montelukast [Singulair] 10 mg PO DAILY Venlafaxine [Effexor XR] 150 mg PO DAILY 06/13/18 21:00 Famotidine [Pepcid] 20 mg PO BEDTIME 06/14/18 05:11 BASIC METABOLIC PANEL,BMP [CHEM] AM C-REACTIVE PROTEIN [CHEM] AM CBC WITH AUTO DIFF [HEME] AM MAGNESIUM [CHEM] AM 06/15/18 05:11 BASIC METABOLIC PANEL,BMP [CHEM] AM C-REACTIVE PROTEIN [CHEM] AM CBC WITH AUTO DIFF [HEME] AM MAGNESIUM [CHEM] AM - Plan Plan:: Assessment/Plan: Acute: Right Lower extremity Cellulitis - Carries a hx/o DM - Took herself off diabetic medications after she lost a significant amount of weight - Has chronic ulcers on distal toes - WBC 15.98; CRP 21.6 - She follows Dr. Oliveira in [place] - streak of erythema on right lower extremity but w/o obvious edema - IV Vancomycin and Rocephin for pharmacy to dose Chronic: Hx/o Afib COPD/Asthma HTN DM2 CKD Stag 2-3 Chronic Pain Peripheral Neuropathy Depression Hx/o Weight Loss Nicotine Dependence Plan: Admit to [facility] Resume Home Meds Routine AM Labs IV Antibiotics A1C level PT/OT consult SW/CM for d/c planning Code status: 1
[2018-06-13] MEDS: Sodium Chloride 0.9% 1,000 ML IV SCH (11:17)
[2018-06-13] MEDS ORDERED: HYDROmorphone 0.5 MG/0.5 ML Syringe IVPUSH PRN (12:47)
[2018-06-13] MEDS ORDERED: Nicotine 21 MG/24 Hr Patch TRDERM SCH (14:00)
--- NOTE | 2018-06-13 16:51 | PCM.DCSUM1 ---
Discharge Summary - Hospital Course HPI Initial Comments: This is a 67 yo [place] Cath[place]/ female with past medical hx/o Hx/o Afib , COPD/Asthma, HTN, DM2 diet controlled, CKD Stag 2-3, Chronic Pain, Peripheral Neuropathy, Depression, Hx/o Significant Weight Loss and Nicotine Dependence who comes in for worsening right lower extremity pain that started 3 days ago. Her pain starts in her pinky toe and radiates all the way up to her thigh. Her pain is sharp in nature and is associated with warmth and erythema as well as tenderness on palpation. No obvious edema can be appreciated. Her pain worsens with walking or movement but gets better with rest. She denies any fever or chills. Her initial work up in ED shows a CBC remarkable for WBC of 15.98, MCHC of 35.7 , Neutrophils of 88.1%, and Lymphocytes of 6.2%. Her chemistry is significant for Na of 131, Cl of 95, AG of 15.9, Cr of 1.5, Alk Phos of 147, CRP of 21.6, and Albumin of 2.7. Duplex U/S of her left lower leg report reads popliteal cyst. No evidence of DVT within the right lower extremity or within the left common femoral vein. Patient is being admitted primarily for medical treatment of right lower leg cellulitis. She is full code. Diagnosis: Stroke: No - Discharge Data Discharge Date: 06/13/18 Discharge Disposition: Against Medical Advice 07 Condition: Good - Discharge Diagnosis/Problem(s) (1) Cellulitis in diabetic foot SNOMED Code(s): 153361600 ICD Code: E11.628 - TYPE 2 DIABETES MELLITUS WITH OTHER SKIN COMPLICATIONS; L03.119 - CELLULITIS OF UNSPECIFIED PART OF LIMB Status: Acute - Patient Summary/Data Operative Procedure(s) Performed: None Complications: Unknown Consults: Consultations 06/12/18 17:08 Consult to Case Management/Frame Opener [CONS] Routine Consult to Spiritual Care [CONS] Routine OT Evaluation and Treatment [CONS] Routine PT Evaluation and Treatment [CONS] Routine Labs Pending at D/C: None Recommended Follow-up Testing/Procedures: None Planned Operative Procedure(s) after DC: None Hospital Course: Patient left AMA - Patient Instructions Other/Special Instructions: Patient left AMA - Discharge Plan *PRESCRIPTION DRUG MONITORING PROGRAM REVIEWED*: Not Applicable *COPY OF PRESCRIPTION DRUG MONITORING REPORT IN PATIENT DIONISIO: Not Applicable Home Medications: Home Meds Hydrocodone/Acetaminophen [Hydrocodon-Acetaminophen 5-325] 1 - 2 each PO Q6HR PRN #20 tablet 09/03/17 [Rx] Ranitidine HCl [Zantac] 150 mg PO DAILY #30 tablet 09/03/17 [Rx] Albuterol/Ipratropium [Combivent Respimat] 2 puff IH DAILY 06/12/18 [History] Albuterol/Ipratropium [DuoNeb 3.0-0.5 MG/3 ML] 3 ml INH DAILY PRN 06/12/18 [ History] Aspirin 81 mg PO DAILY 06/12/18 [History] Diltiazem HCl [Cardizem] 30 mg PO DAILY 06/12/18 [History] Fish Oil/[place]-3 Fatty Acids [Fish Oil] 1 each PO DAILY 06/12/18 [History] Fluticasone/Salmeterol [Advair 250-50 Diskus] 1 puff INH DAILY 06/12/18 [History ] Gabapentin [Neurontin] 800 mg PO DAILY 06/12/18 [History] Loratadine 10 mg PO DAILY 06/12/18 [History] Metoprolol Succinate [Toprol XL] 25 mg PO DAILY 06/12/18 [History] Mirtazapine 45 mg PO DAILY 06/12/18 [History] Montelukast [Singulair] 10 mg PO DAILY 06/12/18 [History] Pantoprazole [ProTONIX] 40 mg PO DAILY 06/12/18 [History] Vit #76/Iron,Carb/Fa [Prenatabs Rx] 1 each PO DAILY 06/12/18 [History] Venlafaxine [Effexor XR] 150 mg PO DAILY 06/12/18 [History] Oxygen Therapy Mode: Room Air Referrals: PCP,None [Primary Care Provider] - - Discharge Summary/Plan Comment DC Time >30 min.: No Discharge Summary/Plan Comment: Patient left AMA - General Info Date of Service: 06/13/18 Subjective Update: Follow Up - Review of Systems Systems Review Comment: Unable to obtain, patient left AMA - Patient Data Vitals - Most Recent: Last Vital Signs Temp 36.8 C 06/13/18 12:45 Pulse 79 06/13/18 12:45 Resp 15 06/13/18 12:45 BP 115/67 06/13/18 12:45 Pulse Ox 94 L 06/13/18 12:45 Weight - Most Recent: 55.384 kg I&O - Last 24 hours: Intake & Output 06/13/18 06/13/18 06/13/18 06:59 14:59 22:59 Intake Total 1242 240 Output Total 600 Balance 642 240 Lab Results - Last 24 hrs: Laboratory Results - last 24 hr 06/13/18 06/13/18 06/13/18 Range/Units 05:54 05:54 05:54 WBC 9.65 (3.98-10.04) K/mm3 RBC 3.85 L (3.98-5.22) M/mm3 Hgb 12.2 D (11.2-15.7) gm/L Hct 34.8 (34.1-44.9) % MCV 90.4 (79.4-94.8) fl MCH 31.7 (25.6-32.2) pg MCHC 35.1 (32.2-35.5) g/dl RDW Std Deviation 42.9 (36.4-46.3) fL Plt Count 188 (182-369) K/mm3 MPV 9.9 (9.4-12.3) fl Neut % (Auto) 82.6 H (34.0-71.1) % Lymph % (Auto) 8.1 L (19.3-51.7) % [place] % (Auto) 8.0 (4.7-12.5) % Eos % (Auto) 0.7 (0.7-5.8) Baso % (Auto) 0.3 (0.1-1.2) % Neut # (Auto) 7.97 H (1.56-6.13) K/mm3 Lymph # (Auto) 0.78 L (1.18-3.74) K/mm3 [place] # (Auto) 0.77 H (0.24-0.36) K/mm3 Eos # (Auto) 0.07 (0.04-0.36) K/mm3 Baso # (Auto) 0.03 (0.01-0.08) K/mm3 Manual Slide Review Normal smear Sodium 134 L (136-145) mEq/L Potassium 3.6 (3.5-5.1) mEq/L Chloride 102 (98-107) mEq/L Carbon Dioxide 21 (21-32) mEq/L Anion Gap 14.6 (5-15) BUN 16 (7-18) mg/dL Creatinine 1.2 H (0.55-1.02) mg/dL Est Cr Clr Drug Dosing 38.15 mL/min Estimated GFR (MDRD) 45 (>60) mL/min BUN/Creatinine Ratio 13.3 L (14-18) Glucose 78 L (80-115) mg/dL Hemoglobin A1c 5.00 (4.50-6.20) % Uric Acid 6.1 H (2.6-6.0) mg/dL Calcium 7.7 L (8.5-10.1) mg/dL Magnesium 1.8 (1.8-2.4) mg/dl C-Reactive Protein 17.0 H* (<1.0) mg/dL Triglycerides 168 H (<150) mg/dL Cholesterol 135 (<200) mg/dL LDL Cholesterol Direct 69 (<100) mg/dL HDL Cholesterol 39.0 L (40-59) mg/dL [place] Results - Last 24 hrs: Microbiology 06/12/18 12:54 Aerobic Blood Culture - Preliminary Blood - Venous - Lab Draw NO GROWTH AFTER 1 DAY Anaerobic Blood Culture - Final 06/12/18 12:39 Aerobic Blood Culture - Preliminary Blood - Venous NO GROWTH AFTER 1 DAY Anaerobic Blood Culture - Preliminary NO GROWTH AFTER 1 DAY Med Orders - Current: Current Medications Discontinued Medications Acetaminophen (Tylenol) 650 mg PO Q4H PRN PRN Reason: Pain (Mild 1-3)/fever Hydrocodone Bitart/Acetaminophen ([place] 325-5 Mg) 1 tab PO Q4H PRN PRN Reason: Pain (moderate 4-6) Last Admin: 06/12/18 17:53 Dose: 1 tab Hydrocodone Bitart/Acetaminophen ([place] 325-5 Mg) 1 - 2 tab PO Q6H PRN PRN Reason: PAIN Last Admin: 06/13/18 03:06 Dose: 2 tab Albuterol/Ipratropium (Duoneb 3.0-0.5 Mg/3 Ml) 3 ml INH DAILY PRN PRN Reason: Dyspnea Last Admin: 06/13/18 08:37 Dose: 3 ml Albuterol/Ipratropium (Duoneb 3.0-0.5 Mg/3 Ml) 3 ml NEB Q4H PRN PRN Reason: Shortness Of Breath/wheezing Aspirin (Halfprin) 81 mg PO DAILY [facility] Last Admin: 06/13/18 08:49 Dose: 81 mg Bisacodyl (Dulcolax) 5 mg PO DAILY PRN PRN Reason: Constipation Last Admin: 06/12/18 18:27 Dose: 5 mg Ceftriaxone Sodium (Rocephin) 2 gm IVPUSH ONETIME ONE Stop: 06/12/18 14:50 Last Admin: 06/12/18 14:59 Dose: 2 gm Diltiazem HCl (Cardizem) 30 mg PO DAILY [facility] Last Admin: 06/13/18 08:48 Dose: 30 mg Docusate Sodium (Colace) 100 mg PO BID PRN PRN Reason: Constipation Last Admin: 06/12/18 18:27 Dose: 100 mg Enoxaparin Sodium (Lovenox) 40 mg SUBCUT DAILY [facility] Last Admin: 06/13/18 08:52 Dose: 40 mg Famotidine (Pepcid) 20 mg PO BEDTIME [facility] Fish Oil (Fish Oil) 1 gm PO DAILY [facility] Last Admin: 06/13/18 08:50 Dose: 1 gm Gabapentin (Neurontin) 200 mg PO DAILY [facility] Last Admin: 06/13/18 08:51 Dose: 200 mg Gabapentin (Neurontin) 600 mg PO DAILY [facility] Last Admin: 06/13/18 08:50 Dose: 600 mg Hydralazine HCl (Apresoline) 20 mg IVPUSH Q4H PRN PRN Reason: Hypertension Stop: 06/13/18 09:00 Hydromorphone HCl (Dilaudid) 0.5 mg IVPUSH ONETIME ONE Stop: 06/12/18 12:05 Last Admin: 06/12/18 12:58 Dose: 0.5 mg Hydromorphone HCl (Dilaudid) 0.5 mg IVPUSH Q2H PRN PRN Reason: Pain (severe 7-10) Hydromorphone HCl (Dilaudid) 0.5 mg IVPUSH Q2H PRN PRN Reason: Pain (severe 7-10) Sodium Chloride (Normal Saline) 1,000 mls @ 999 mls/hr IV ONETIME ONE Stop: 06/12/18 12:58 Last Admin: 06/12/18 12:59 Dose: 999 mls/hr Vancomycin HCl 1 gm/ Sodium (Chloride) 250 mls @ 250 mls/hr IV ONETIME ONE Stop: 06/12/18 13:29 Last Admin: 06/12/18 12:59 Dose: 250 mls/hr Sodium Chloride (Normal Saline) 1,000 mls @ 999 mls/hr IV ONETIME ONE Stop: 06/12/18 14:14 Last Admin: 06/12/18 15:00 Dose: 999 mls/hr Sodium Chloride (Normal Saline) 1,000 mls @ 100 mls/hr IV ASDIRECTED [facility] Last Admin: 06/13/18 11:17 Dose: 100 mls/hr Loratadine (Claritin) 10 mg PO DAILY [facility] Last Admin: 06/13/18 08:51 Dose: 10 mg Lorazepam (Ativan) 0.25 mg IV Q6H PRN PRN Reason: Anxiety Magnesium Sulfate (Pharmacy To Dose - Magnesium Replacement) 1 dose .XX ASDIRECTED [facility] Stop: 06/14/18 09:00 Metoprolol Succinate (Toprol Xl) 25 mg PO DAILY [facility] Last Admin: 06/13/18 11:24 Dose: Not Given Metoprolol Tartrate (Lopressor) 5 mg IVPUSH Q4H PRN PRN Reason: Tachycardia Stop: 06/14/18 09:00 Mirtazapine (Remeron) 45 mg PO DAILY [facility] Last Admin: 06/13/18 08:51 Dose: 45 mg Miscellaneous Information (Remove Patch) 1 ea TRDERM Q24H [facility] Mometasone Furoate/Formoterol Fumar (Dulera 200-5 Mcg) 0 puff IH DAILY [facility] Last Admin: 06/13/18 08:21 Dose: 2 puff Montelukast Sodium (Singulair) 10 mg PO DAILY [facility] Last Admin: 06/13/18 08:48 Dose: 10 mg Nicotine (Habitrol) 21 mg TRDERM DAILY [facility] Non-Formulary Medication (Acetaminophen/Hydrocodone) 1 - 2 each PO Q6HR PRN PRN Reason: Pain Non-Formulary Medication (Albuterol/Ipratropium) 4 gm IH DAILY [facility] Ondansetron HCl (Zofran) 4 mg IVPUSH ONETIME ONE Stop: 06/12/18 12:05 Last Admin: 06/12/18 12:58 Dose: 4 mg Pantoprazole Sodium (Protonix) 40 mg PO DAILY@0700 [facility] Last Admin: 06/13/18 06:27 Dose: 40 mg Polyethylene Glycol (Miralax) 17 gm PO DAILY PRN PRN Reason: Constipation Potassium Chloride (Pharmacy To Dose - Potassium Replacement) 1 dose .XX ASDIRECTED [facility] Stop: 06/14/18 09:11 Senna/Docusate Sodium (Senna Plus) 1 tab PO BID PRN PRN Reason: Constipation Temazepam (Restoril) 15 mg PO BEDTIME PRN PRN Reason: Insomnia Last Admin: 06/12/18 21:21 Dose: 15 mg Venlafaxine HCl (Effexor Xr) 150 mg PO DAILY [facility] Last Admin: 06/13/18 08:49 Dose: 150 mg - Exam Physical Findings Comments:: Unable to perform, patient left AMA
[2018-06-13] MEDS ORDERED: Famotidine 20 MG Tab PO SCH (21:00)
--- NOTE | 2018-06-15 10:31 | PCM.SN ---
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
== END 2018-06-13 14:13 | disposition left against medical advice (07) | DRG 638 ==
LOC: JD.ED 10:54 → JD.MS 14:56
PROVIDERS: ADMIT Internal Medicine; ATTEND Internal Medicine
DX: E11.628 Type 2 diabetes mellitus with other skin complications (principal); L03.115 Cellulitis of right lower limb; Z91.19 Patient's noncompliance with other medical treatment and regimen; L03.031 Cellulitis of right toe; I48.91 Unspecified atrial fibrillation; J44.9 Chronic obstructive pulmonary disease, unspecified; F17.210 Nicotine dependence, cigarettes, uncomplicated; E11.22 Type 2 diabetes mellitus with diabetic chronic kidney disease; I12.9 Hypertensive chronic kidney disease with stage 1 through stage 4 chronic kidney disease, or unspecified chronic kidney disease; R05 Cough; R11.0 Nausea; R09.3 Abnormal sputum; R26.2 Difficulty in walking, not elsewhere classified; R53.1 Weakness; L53.9 Erythematous condition, unspecified; M79.604 Pain in right leg; N18.3 Chronic kidney disease, stage 3 (moderate); G89.29 Other chronic pain; E11.42 Type 2 diabetes mellitus with diabetic polyneuropathy; F32.9 Major depressive disorder, single episode, unspecified; H54.7 Unspecified visual loss; E78.00 Pure hypercholesterolemia, unspecified; K59.09 Other constipation; M19.90 Unspecified osteoarthritis, unspecified site; M81.0 Age-related osteoporosis without current pathological fracture; B35.1 Tinea unguium; E11.621 Type 2 diabetes mellitus with foot ulcer; L97.519 Non-pressure chronic ulcer of other part of right foot with unspecified severity; Z87.442 Personal history of urinary calculi; Z88.0 Allergy status to penicillin; Z79.82 Long term (current) use of aspirin; Z79.899 Other long term (current) drug therapy
CPT/HCPCS: 36415; 71046; 71046-26; 80048; 80053; 80061; 82533; 83036; 83605; 83735; 84550; 85025; 86140; 87040; 93971-26-RT; 93971-RT; 94640; 96365; 96366; 96375; 97162-GP; 97165-GO; 99285-25; A9270-GY; J0696; J1170; J1650; J2405; J3370; J7040; J7050; J7620-GY

== ENCOUNTER 2019-05-24 16:11 | Inpatient (IN) | payer MEDICARE, OTHER ==
[2019-05-24] MEDS ORDERED: Sodium Chloride 0.9% 10 ML Syringe FLUSH PRN ×2 (16:39→17:49)
--- NOTE | 2019-05-24 16:41 | EDM.PDOC ---
ED HPI GENERAL MEDICAL PROBLEM - General Chief Complaint: Lower Extremity Injury/Pain Stated Complaint: INFECTED TOE Time Seen by Provider: 05/24/19 16:33 Source of Information: Reports: Patient History Limitations: Reports: No Limitations - History of Present Illness INITIAL COMMENTS - FREE TEXT/NARRATIVE: Patient is a 68-year-old female who presents to the ER with complaints of an infection to her right great toe. Patient states that the symptoms began approximately 2 weeks ago. She was seen at the [facility] and [facility] at that time. Antibiotics were not initiated. She later followed up with them again. She states they completed x-rays and notify her today that she has osteomyelitis and recommended she come to the ER. She has had states that the swelling and drainage has gotten worse over the last 2 weeks. She has not had any fever, chills, nausea, or vomiting. Patient has a history of type 2 diabetes but states that since she lost "so much weight "she has been told that she has no longer diabetic. - Related Data Allergies Allergy/AdvReac Type Severity Reaction Status Date / Time Penicillins Allergy Cannot Verified 05/24/19 17:07 Remember Home Meds: Home Meds Albuterol/Ipratropium [Combivent Respimat] 2 puff IH DAILY 06/12/18 [History] Albuterol/Ipratropium [DuoNeb 3.0-0.5 MG/3 ML] 3 ml INH DAILY PRN 06/12/18 [ History] Aspirin 81 mg PO DAILY 06/12/18 [History] Diltiazem HCl [Cardizem] 30 mg PO DAILY 06/12/18 [History] Fish Oil/[place]-3 Fatty Acids [Fish Oil] 1 each PO DAILY 06/12/18 [History] Fluticasone/Salmeterol [Advair 250-50 Diskus] 1 puff INH DAILY 06/12/18 [History ] Gabapentin [Neurontin] 800 mg PO DAILY 06/12/18 [History] Metoprolol Succinate [Toprol XL] 25 mg PO DAILY 06/12/18 [History] Mirtazapine 45 mg PO DAILY 06/12/18 [History] Montelukast [Singulair] 10 mg PO DAILY 06/12/18 [History] Pantoprazole [ProTONIX] 40 mg PO DAILY 06/12/18 [History] Vit #76/Iron,Carb/Fa [Prenatabs Rx] 1 each PO DAILY 06/12/18 [History] Past Medical History HEENT History: Reports: Impaired Vision Other HEENT History: wears glasses Cardiovascular History: Reports: Afib, Angina, High Cholesterol, Hypertension, CT Respiratory History: Reports: Asthma, Bronchitis, Recurrent, COPD Gastrointestinal History: Reports: Chronic Constipation Genitourinary History: Reports: Chronic Renal Insuffiency, Renal Calculus [employer]MER [employer]ER History: Reports: Musculoskeletal History: Reports: Arthritis, Osteoporosis Neurological History: Reports: None Psychiatric History: Reports: Bipolar Endocrine/Metabolic History: Reports: Diabetes, Type II Other Endocrine/Metabolic History: reports was diabetic before lost weight 1 year ago Hematologic History: Reports: None Immunologic History: Reports: None Oncologic (Cancer) History: Reports: None Dermatologic History: Reports: Eczema, Other (See Below) Other Dermatologic History: infected toenail, diabetic foot ulcers - Infectious Disease History Infectious Disease History: Reports: None - Past Surgical History HEENT Surgical History: Reports: None GI Surgical History: Reports: Appendectomy, Other (See Below) Other GI Surgeries/Procedures: Gall stones removed. Female Surgical History: Reports: Section Social & Family History - Family History Family Medical History: Noncontributory - Tobacco Use Smoking Status *Q: Current Every Day Smoker Years of Tobacco use: 54 Packs/Tins Daily: 0.5 - Caffeine Use Caffeine Use: Reports: Coffee Other Caffeine Use: 1 pot a day - Recreational Drug Use Recreational Drug Use: No Review of Systems - Review of Systems Review Of Systems: Comprehensive ROS is negative, except as noted in HPI. ED EXAM, GENERAL - Physical Exam Exam: See Below Exam Limited By: No Limitations General Appearance: Alert, WD/WN, No Apparent Distress Respiratory/Chest: No Respiratory Distress, Lungs Clear, Normal Breath Sounds, No Accessory Muscle Use, Chest Non-Tender Cardiovascular: Normal Peripheral Pulses, Regular Rate, Rhythm, No Edema, No Gallop, No JVD, No Murmur, No Rub Extremities: Other (4+ edema to the right great toe. Skin is purplish in color. There is a small area of protruding tissue with bloody drainage on the dorsal aspect of the toe.) Psychiatric: Normal Affect, Normal Mood Skin Exam: Warm, Dry, Intact, Normal Color, No Rash Course - Vital Signs Last Recorded V/S: Last Vital Signs Temp 97.9 F 05/24/19 16:28 Pulse 89 05/24/19 16:28 Resp 16 05/24/19 16:28 BP 122/76 05/24/19 16:28 Pulse Ox 98 05/24/19 16:28 - Orders/Labs/Meds Orders: Active Orders 24 hr Category Date Time Status Peripheral IV Care [RC] . DIRECTED Care 05/24/19 16:39 Active CULTURE BLOOD [BC] Stat Lab 05/24/19 20:25 Received CULTURE BLOOD [BC] Stat Lab 05/24/19 20:35 Received CULTURE URINE [RM] Stat Lab 05/24/19 16:55 Received Pharmacy to Dose - Vancomycin Med 05/24/19 19:56 Pending 1 dose .XX ONETIME ONE Sodium Chloride 0.9% [Normal Saline] 1,000 ml Med 05/24/19 17:30 Active IV ASDIRECTED Sodium Chloride 0.9% [Normal Saline] 1,000 ml Med 05/24/19 19:30 Active IV ASDIRECTED Sodium Chloride 0.9% [Saline Flush] Med 05/24/19 16:39 Active 10 ml FLUSH ASDIRECTED PRN Sodium Chloride 0.9% [Saline Flush] Med 05/24/19 17:49 Active 10 ml FLUSH ONETIME PRN Blood Culture x2 Reflex Set [OM.PC] Stat Oth 05/24/19 19:57 Ordered Peripheral IV Insertion Adult [OM.PC] Stat Oth 05/24/19 16:39 Ordered Medication Orders Sodium Chloride (Normal Saline) 1,000 mls @ 999 mls/hr IV ASDIRECTED [facility] Last Admin: 05/24/19 17:30 Dose: 150 mls/hr Sodium Chloride (Normal Saline) 1,000 mls @ 150 mls/hr IV ASDIRECTED [facility] Last Admin: 05/24/19 20:49 Dose: 150 mls/hr Vancomycin HCl 1.25 gm/ Sodium (Chloride) 250 mls @ 125 mls/hr IV ONETIME ONE Stop: 05/24/19 22:29 Last Admin: 05/24/19 20:49 Dose: 125 mls/hr Sodium Chloride (Saline Flush) 10 ml FLUSH ASDIRECTED PRN PRN Reason: Keep Vein Open Last Admin: 05/24/19 17:12 Dose: 10 ml Sodium Chloride (Saline Flush) 10 ml FLUSH ONETIME PRN PRN Reason: Keep Vein Open Last Admin: 05/24/19 18:20 Dose: 10 ml Vancomycin HCl (Pharmacy To Dose - Vancomycin) 1 dose .XX ONETIME ONE Stop: 05/24/19 19:57 Labs: Laboratory Tests 05/24/19 05/24/19 05/24/19 Range/Units 16:54 16:54 16:54 WBC 5.21 (3.98-10.04) K/mm3 RBC 3.86 L (3.98-5.22) M/mm3 Hgb 10.8 L (11.2-15.7) gm/dl Hct 32.1 L (34.1-44.9) % MCV 83.2 D (79.4-94.8) fl MCH 28.0 (25.6-32.2) pg MCHC 33.6 (32.2-35.5) g/dl RDW Std Deviation 44.3 (36.4-46.3) fL Plt Count 315 D (182-369) K/mm3 MPV 9.6 (9.4-12.3) fl Neut % (Auto) 61.6 (34.0-71.1) % Lymph % (Auto) 26.3 (19.3-51.7) % [place] % (Auto) 7.9 (4.7-12.5) % Eos % (Auto) 3.6 (0.7-5.8) Baso % (Auto) 0.4 (0.1-1.2) % Neut # (Auto) 3.21 (1.56-6.13) K/mm3 Lymph # (Auto) 1.37 (1.18-3.74) K/mm3 [place] # (Auto) 0.41 H (0.24-0.36) K/mm3 Eos # (Auto) 0.19 (0.04-0.36) K/mm3 Baso # (Auto) 0.02 (0.01-0.08) K/mm3 Sodium 138 (136-145) mEq/L Potassium 3.9 (3.5-5.1) mEq/L Chloride 103 (98-107) mEq/L Carbon Dioxide 21 (21-32) mEq/L Anion Gap 17.9 H (5-15) BUN 38 H (7-18) mg/dL Creatinine 1.4 H (0.55-1.02) mg/dL Est Cr Clr Drug Dosing 29.04 mL/min Estimated GFR (MDRD) 38 (>60) mL/min BUN/Creatinine Ratio 27.1 H (14-18) Glucose 96 (80-115) mg/dL Lactic Acid 0.7 (0.4-2.0) mmol/L Calcium 9.0 (8.5-10.1) mg/dL Total Bilirubin 0.3 (0.2-1.0) mg/dL AST 27 (15-37) U/L ALT 26 (14-59) U/L Alkaline Phosphatase 156 H (46-116) U/L C-Reactive Protein 1.1 H* (<1.0) mg/dL Total Protein 7.9 (6.4-8.2) g/dl Albumin 3.4 (3.4-5.0) g/dl Globulin 4.5 gm/dL Albumin/Globulin Ratio 0.8 L (1-2) Urine Color (Yellow) Urine Appearance (Clear) Urine pH (5.0-8.0) Ur Specific [place] (1.005-1.030) Urine Protein (Negative) Urine Glucose (UA) (Negative) Urine Ketones (Negative) Urine Occult Blood (Negative) Urine Nitrite (Negative) Urine Bilirubin (Negative) Urine Urobilinogen (0.2-1.0) Ur Leukocyte Esterase (Negative) Urine RBC (0-5) /hpf Urine WBC (0-5) /hpf Ur Squamous Epith Cells (0-5) /hpf Urine Bacteria (FEW) /hpf Urine Mucus (FEW) /hpf 05/24/19 Range/Units 17:12 WBC (3.98-10.04) K/mm3 RBC (3.98-5.22) M/mm3 Hgb (11.2-15.7) gm/dl Hct (34.1-44.9) % MCV (79.4-94.8) fl MCH (25.6-32.2) pg MCHC (32.2-35.5) g/dl RDW Std Deviation (36.4-46.3) fL Plt Count (182-369) K/mm3 MPV (9.4-12.3) fl Neut % (Auto) (34.0-71.1) % Lymph % (Auto) (19.3-51.7) % [place] % (Auto) (4.7-12.5) % Eos % (Auto) (0.7-5.8) Baso % (Auto) (0.1-1.2) % Neut # (Auto) (1.56-6.13) K/mm3 Lymph # (Auto) (1.18-3.74) K/mm3 [place] # (Auto) (0.24-0.36) K/mm3 Eos # (Auto) (0.04-0.36) K/mm3 Baso # (Auto) (0.01-0.08) K/mm3 Sodium (136-145) mEq/L Potassium (3.5-5.1) mEq/L Chloride (98-107) mEq/L Carbon Dioxide (21-32) mEq/L Anion Gap (5-15) BUN (7-18) mg/dL Creatinine (0.55-1.02) mg/dL Est Cr Clr Drug Dosing mL/min Estimated GFR (MDRD) (>60) mL/min BUN/Creatinine Ratio (14-18) Glucose (80-115) mg/dL Lactic Acid (0.4-2.0) mmol/L Calcium (8.5-10.1) mg/dL Total Bilirubin (0.2-1.0) mg/dL AST (15-37) U/L ALT (14-59) U/L Alkaline Phosphatase (46-116) U/L C-Reactive Protein (<1.0) mg/dL Total Protein (6.4-8.2) g/dl Albumin (3.4-5.0) g/dl Globulin gm/dL Albumin/Globulin Ratio (1-2) Urine Color Yellow (Yellow) Urine Appearance Clear (Clear) Urine pH 6.5 (5.0-8.0) Ur Specific [place] 1.025 (1.005-1.030) Urine Protein 3+ H (Negative) Urine Glucose (UA) Negative (Negative) Urine Ketones Negative (Negative) Urine Occult Blood Trace-intact H (Negative) Urine Nitrite Negative (Negative) Urine Bilirubin Negative (Negative) Urine Urobilinogen 0.2 (0.2-1.0) Ur Leukocyte Esterase Trace H (Negative) Urine RBC 5-10 H (0-5) /hpf Urine WBC 5-10 H (0-5) /hpf Ur Squamous Epith Cells 5-10 H (0-5) /hpf Urine Bacteria Moderate H (FEW) /hpf Urine Mucus Few (FEW) /hpf Meds: Medications Generic Name Dose Route Start Last Admin Trade Name Freq PRN Reason Stop Dose Admin Sodium Chloride 1,000 mls @ 999 mls/hr 05/24/19 17:30 05/24/19 17:30 Normal Saline IV 150 mls/hr ASDIRECTED [facility] Administration Sodium Chloride 1,000 mls @ 150 mls/hr 05/24/19 19:30 05/24/19 20:49 Normal Saline IV 150 mls/hr ASDIRECTED [facility] Administration Vancomycin HCl 1.25 gm/ Sodium 250 mls @ 125 mls/hr 05/24/19 20:30 05/24/19 20:49 Chloride IV 05/24/19 22:29 125 mls/hr ONETIME ONE Administration Sodium Chloride 10 ml 05/24/19 16:39 05/24/19 17:12 Saline Flush FLUSH 10 ml ASDIRECTED PRN Administration Keep Vein Open Sodium Chloride 10 ml 05/24/19 17:49 05/24/19 18:20 Saline Flush FLUSH 10 ml ONETIME PRN Administration Keep Vein Open Vancomycin HCl 1 dose 05/24/19 19:56 Pharmacy To Dose - Vancomycin .XX 05/24/19 19:57 ONETIME ONE Discontinued Medications Generic Name Dose Route Start Last Admin Trade Name Donteq PRN Reason Stop Dose Admin Hydromorphone HCl 0.5 mg 05/24/19 17:17 05/24/19 17:30 Dilaudid IVPUSH 05/24/19 17:18 0.5 mg ONETIME ONE Administration Iopamidol 100 ml 05/24/19 17:49 05/24/19 18:20 Isovue-300 (61%) IVPUSH 05/24/19 17:50 100 ml ONETIME ONE Administration Vancomycin HCl Confirm 05/24/19 20:38 Vancomycin Administered 05/24/19 20:39 Dose 1 gm .ROUTE .STK-MED ONE - Re-Assessments/Exams Free Text/Narrative Re-Assessment/Exam: Based on patient exam, there is a definite concern for osteomyelitis of the right great toe. We will complete a CBC, CMP, CRP at this time. Intent will be to complete a CT of the right foot with contrast depending on patient kidney function. 05/24/19 17:43 Patient's creatinine is 1.4, BUN 38, anion gap elevated at 17.9 indicating that the patient is slightly dehydrated. Blood work was otherwise grossly unremarkable. We will bolus a liter of IV fluids. I feel it is important to complete the CT to definitively diagnose osteomyelitis versus cellulitis so that she receives the appropriate treatment. Plan will be to complete the CT scan with IV contrast after the bolus has been running for about 30 minutes. 05/24/19 20:29 CT of the right foot shows diffuse soft tissue swelling primarily within the first toe. Findings are compatible with diffuse cellulitis. Destructive change around the PIP joint of the first toe compatible with osteomyelitis. A small cystic area within the distal first metatarsal compatible with an additional area of osteomyelitis. I did call and speak with orthopedist, Dr. Campos. He advised that initial treatment of osteomyelitis is a long-term antibiotics. He stated that he would be willing to follow-up with the patient. Called and spoke with hospitalist, Dr. Ryan. He accepted the patient for admission for treatment of the osteomyelitis. We will start vancomycin for empiric antibiotic therapy. I have ordered blood cultures as well. Departure - Departure Time of Disposition: 20:29 Disposition: Admitted As Inpatient 67 Condition: Fair Clinical Impression: Osteomyelitis Qualifiers: Osteomyelitis type: unspecified type Osteomyelitis location: foot Laterality: right Qualified Code(s): M86.9 - Osteomyelitis, unspecified - Discharge Information Sepsis Event Note - Evaluation Sepsis Screening Result: No Definite Risk - Focused Exam Vital Signs: Vital Signs Temp Pulse Resp BP Pulse Ox 05/24/19 16:28 97.9 F 89 16 122/76 98 Date Exam was Performed: 05/24/19 Time Exam was Performed: 20:55 - My Orders Last 24 Hours: My Active Orders 05/24/19 16:39 Peripheral IV Care [RC] . DIRECTED Sodium Chloride 0.9% [Saline Flush] 10 ml FLUSH ASDIRECTED PRN Peripheral IV Insertion Adult [OM.PC] Stat 05/24/19 16:55 CULTURE URINE [RM] Stat 05/24/19 17:30 Sodium Chloride 0.9% [Normal Saline] 1,000 ml IV ASDIRECTED 05/24/19 17:49 Sodium Chloride 0.9% [Saline Flush] 10 ml FLUSH ONETIME PRN 05/24/19 19:30 Sodium Chloride 0.9% [Normal Saline] 1,000 ml IV ASDIRECTED 05/24/19 19:56 Pharmacy to Dose - Vancomycin 1 dose .XX ONETIME ONE 05/24/19 19:57 Blood Culture x2 Reflex Set [OM.PC] Stat 05/24/19 20:25 CULTURE BLOOD [BC] Stat 05/24/19 20:35 CULTURE BLOOD [BC] Stat - Assessment/Plan Last 24 Hours: My Active Orders 05/24/19 16:39 Peripheral IV Care [RC] . DIRECTED Sodium Chloride 0.9% [Saline Flush] 10 ml FLUSH ASDIRECTED PRN Peripheral IV Insertion Adult [OM.PC] Stat 05/24/19 16:55 CULTURE URINE [RM] Stat 05/24/19 17:30 Sodium Chloride 0.9% [Normal Saline] 1,000 ml IV ASDIRECTED 05/24/19 17:49 Sodium Chloride 0.9% [Saline Flush] 10 ml FLUSH ONETIME PRN 05/24/19 19:30 Sodium Chloride 0.9% [Normal Saline] 1,000 ml IV ASDIRECTED 05/24/19 19:56 Pharmacy to Dose - Vancomycin 1 dose .XX ONETIME ONE 05/24/19 19:57 Blood Culture x2 Reflex Set [OM.PC] Stat 05/24/19 20:25 CULTURE BLOOD [BC] Stat 05/24/19 20:35 CULTURE BLOOD [BC] Stat
[2019-05-24] MEDS ORDERED: HYDROmorphone 0.5 MG/0.5 ML Syringe IVPUSH ONE (17:17)
[2019-05-24] MEDS ORDERED: Sodium Chloride 0.9% 1,000 ML IV SCH ×3 (17:30→22:30)
[2019-05-24] MEDS ORDERED: Iopamidol 612 MG/ML 100 ML Bottle IVPUSH ONE (17:49)
--- NOTE | 2019-05-24 20:36 | CT ---
CT right foot Technique: Multiple axial sections through the right foot were obtained. Reconstructed coronal and sagittal images were obtained. Intravenous contrast was utilized. Comparison: No foot study is available for comparison. Findings: There is destructive change noted around the PIP joint of the first toe. Findings are felt compatible with osteomyelitis. Cystic area is noted within the distal first metatarsal most likely due to additional area of osteomyelitis. Diffuse soft tissue swelling is seen primarily within the first toe. No additional findings of osteomyelitis are seen. Impression: 1. Diffuse soft tissue swelling primarily within the first toe. Findings are compatible with diffuse cellulitis. 2. Destructive change around the PIP joint of the first toe compatible with osteomyelitis. Small cystic area within the distal first metatarsal compatible with additional area of osteomyelitis. 3. No other findings of osteomyelitis are seen. Diagnostic code #3 Study was dictated in MDT MTDD
[2019-05-24] MEDS ORDERED: Vancomycin 1 GM SDV ONE (20:38)
[2019-05-24] MEDS ORDERED: cefTRIAXone 2 GM in Sodium Chloride 0.9% 100 ML IV SCH (22:00)
[2019-05-24] MEDS ORDERED: Mirtazapine 15 MG Tab PO ONE (22:25)
[2019-05-24] MEDS ORDERED: oxyCODONE 5 MG Tab PO PRN (22:25)
[2019-05-25] MEDS: Insulin Lispro 100 Units/ML 3 ML Vial SUBCUT SCH ×3 (07:50→19:11)
[2019-05-25] MEDS: Nicotine 21 MG/24 Hr Patch TRDERM SCH ×2 (07:50→19:09)
--- NOTE | 2019-05-25 08:09 | PCM.HP.2 ---
H&P History of Present Illness - General Date of Service: 05/25/19 Admit Problem/Dx: Admission Diagnosis/Problem Admission Diagnosis/Problem Osteomyelitis Source of Information: Patient, Old Records, Provider, RN, RN Notes Reviewed - History of Present Illness Initial Comments - Free Text/Narative: Karolyn Boles is a 68 yo female who presented to ED on 05/24/2019 with reports of an infected toe. She reports symptoms began around 2 weeks ago and that she was seen at the [facility] in [place] but was not given any prescription for antibiotics. She returned there after symptoms worsened and they obtained an x-ray. They then called stating that they believe she has osteomyelitis in her right great toe and recommended she come to the ER. She states that she has had swelling and drainage of that toe but denies any fever, chills, nausea, vomiting. She reports a history of type II DM but states that she has been deemed no longer diabetic since she has had significant weight loss. In the ED temp was 97 9 Fahrenheit. Pulse 98. Respirations 16. Blood pressure 122/76. Pulse ox 90%. WBC is normal at 5.21. Hemoglobin low at 10.8. Hematocrit low at 32.1. She is normocytic. Puts her good at 315,000. Neutrophils are normal at 61.6%. Sodium is 138. Potassium 3.9. Chloride 103. Carbon oxide 21. Anion gap is 17.9. BUN is 38. Creatinine 1.4. GFR is 38. Glucose 96. Lactic acid 0.7. Calcium 9.0. Bilirubin 0.3. AST is 27, ALT 26 , alkaline phosphatase 156. CRP is 1.1. Albumin is 3.4. UA is obtained and is negative however 3+ protein, trace intact blood, trace leukocyte esterase, 5- 10 RBCs, 5-10 WBCs, 5-10 squamous epithelial cells, and moderate bacteria are noted. She is given a liter of IV fluid and started on vancomycin. She is also given IV Dilaudid for pain. CT scan of the right foot is obtained showing diffuse tissue swelling primarily within the first toe. Findings are compatible for diffuse cellulitis. Active change around the PIP joint of the first toe compatible with osteomyelitis. A small cystic area within the distal first metatarsal compatible with an additional area of osteomyelitis. Dr. Araiza today, orthopedist, was contacted and states that the patient will require long- term antibiotics. She carries a history of A. fib, angina, HLD, HTN, prior [place], asthma, recurrent bronchitis, COPD, chronic constipation, chronic renal insufficiency, renal calculus, arthritis, osteoporosis, bipolar disorder, type II DM, eczema, diabetic foot ulcers. She is a current daily smoker. She reports she sees [facility] for a primary care provider. She is a full code. She subsequently admitted for IV antibiotics and management of her infected toes. - Related Data Allergies/Adverse Reactions: Allergies Allergy/AdvReac Type Severity Reaction Status Date / Time Penicillins Allergy Cannot Verified 05/24/19 17:07 Remember Home Medications: Home Meds Albuterol/Ipratropium [Combivent Respimat] 2 puff IH BID 06/12/18 [History] Albuterol/Ipratropium [DuoNeb 3.0-0.5 MG/3 ML] 3 ml INH DAILY PRN 06/12/18 [ History] Aspirin 81 mg PO DAILY 06/12/18 [History] Diltiazem HCl [Cardizem] 30 mg PO DAILY 06/12/18 [History] Fish Oil/[place]uma-3 Fatty Acids [Fish Oil] 1 each PO DAILY 06/12/18 [History] Fluticasone/Salmeterol [Advair 250-50 Diskus] 1 puff INH BID 06/12/18 [History] Gabapentin [Neurontin] 800 mg PO DAILY 06/12/18 [History] Metoprolol Succinate [Toprol XL] 25 mg PO DAILY 06/12/18 [History] Mirtazapine 45 mg PO DAILY 06/12/18 [History] Montelukast [Singulair] 10 mg PO DAILY 06/12/18 [History] Pantoprazole [ProTONIX] 40 mg PO DAILY 06/12/18 [History] Vit #76/Iron,Carb/Fa [Prenatabs Rx] 1 each PO DAILY 06/12/18 [History] clindamycin HCL [Cleocin] 450 mg PO QID #112 cap 05/25/19 [Rx] Past Medical History HEENT History: Reports: Impaired Vision Other HEENT History: wears glasses Cardiovascular History: Reports: Afib, Angina, High Cholesterol, Hypertension, [place] Respiratory History: Reports: Asthma, Bronchitis, Recurrent, COPD Gastrointestinal History: Reports: GERD Genitourinary History: Reports: Chronic Renal Insuffiency, Renal Calculus 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 Denies DM at this time. Hematologic History: Reports: Blood Transfusion(s) Immunologic History: Reports: None Oncologic (Cancer) History: Reports: None Dermatologic History: Reports: Eczema, Other (See Below) Other Dermatologic History: infected toenail, diabetic foot ulcers, current cellulitis and osteomylitis - Infectious Disease History Infectious Disease History: Reports: Chicken Pox, Mumps, Rubella - Past Surgical History HEENT Surgical History: Reports: Oral Surgery, Tonsillectomy Cardiovascular Surgical History: Reports: None GI Surgical History: Reports: Appendectomy Female Surgical History: Reports: Section Endocrine Surgical History: Reports: None Neurological Surgical History: Reports: None Musculoskeletal Surgical History: Reports: None Dermatological Surgical History: Reports: None Social & Family History - Family History Family Medical History: Noncontributory - Tobacco Use Smoking Status *Q: Current Every Day Smoker Years of Tobacco use: 54 Packs/Tins Daily: 0.5 Used Tobacco, but Quit: No Second Hand Smoke Exposure: Yes - Caffeine Use Caffeine Use: Reports: Coffee Other Caffeine Use: 1 pot a day Caffeine Use Comment: 5 cups - Recreational Drug Use Recreational Drug Use: No H&P Review of Systems - Review of Systems: Review Of Systems: See Below General: Reports: No Symptoms. Denies: Fever, Chills, Malaise, Weakness, Fatigue HEENT: Reports: No Symptoms. Denies: Headaches, Sore Throat Pulmonary: Reports: Cough (chronic ). Denies: Shortness of Breath, Wheezing, Pleuritic Chest Pain, Sputum, Hemoptysis Cardiovascular: Reports: No Symptoms. Denies: Chest Pain, Palpitations, Dyspnea on Exertion, Edema Gastrointestinal: Reports: No Symptoms. Denies: Abdominal Pain, Constipation, Diarrhea, Nausea, Vomiting Genitourinary: Reports: No Symptoms. Denies: Pain Musculoskeletal: Reports: Foot Pain (right ) Skin: Reports: No Symptoms. Denies: Cyanosis Psychiatric: Reports: Mood Lability, Agitation (angry she is here. Wants a cigarette and to be discharged ). Denies: Confusion Neurological: Reports: No Symptoms. Denies: Pre-Existing Deficit, Difficulty Walking, Weakness, Gait Disturbance Hematologic/Lymphatic: Reports: No Symptoms Immunologic: Reports: No Symptoms Exam - Exam Exam: See Below - Vital Signs Vital Signs: Last Vital Signs Temp 97.9 F 05/25/19 03:24 Pulse 77 05/25/19 03:24 Resp 20 05/25/19 03:24 BP 130/78 05/25/19 03:24 Pulse Ox 97 05/25/19 03:24 Weight: 205 lb 9.6 oz - Exam Quality Assessment: DVT Prophylaxis General: Alert, Oriented, Cooperative (mostly - wants to leave ). No: Mild Distress HEENT: Conjunctiva Clear, EACs Clear, Hearing Intact, Mucosa Moist & Wingate, Nares Patent, PERRLA Neck: Supple, Trachea Midline Lungs: Clear to Auscultation, Normal Respiratory Effort, Decreased Breath Sounds Cardiovascular: Irregular Rhythm GI/Abdominal Exam: Normal Bowel Sounds, Soft, Non-Tender, No Distention (Female) Exam: Deferred Rectal (Female) Exam: Deferred Back Exam: Normal Inspection, Full Range of Motion Extremities: Normal Range of Motion, No Pedal Edema, Normal Capillary Refill, Other (Edematous great toe extending into the space of the second digit. Skin is purple. Patient reports sensation throughout toe. Reports toe is painful with palpitation. Area of protruding tissue on dorsal aspect of toe near PIP joint. No drainage currently.) Peripheral Pulses: 4+: Radial (L), Radial (R), Dorsalis Pedis (L), Dorsalis Pedis (R) Skin: Warm, Dry, Intact Neurological: Cranial Nerves Intact (Grossly ) Neuro Extensive - Mental Status: Alert, Oriented x3 - Patient Data Lab Results Last 24 hrs: Laboratory Results - last 24 hr 05/24/19 05/24/19 05/24/19 Range/Units 16:54 16:54 16:54 WBC 5.21 (3.98-10.04) K/mm3 RBC 3.86 L (3.98-5.22) M/mm3 Hgb 10.8 L (11.2-15.7) gm/dl Hct 32.1 L (34.1-44.9) % MCV 83.2 D (79.4-94.8) fl MCH 28.0 (25.6-32.2) pg MCHC 33.6 (32.2-35.5) g/dl RDW Std Deviation 44.3 (36.4-46.3) fL Plt Count 315 D (182-369) K/mm3 MPV 9.6 (9.4-12.3) fl Neut % (Auto) 61.6 (34.0-71.1) % Lymph % (Auto) 26.3 (19.3-51.7) % Mills % (Auto) 7.9 (4.7-12.5) % Eos % (Auto) 3.6 (0.7-5.8) Baso % (Auto) 0.4 (0.1-1.2) % Neut # (Auto) 3.21 (1.56-6.13) K/mm3 Lymph # (Auto) 1.37 (1.18-3.74) K/mm3 Mills # (Auto) 0.41 H (0.24-0.36) K/mm3 Eos # (Auto) 0.19 (0.04-0.36) K/mm3 Baso # (Auto) 0.02 (0.01-0.08) K/mm3 Sodium 138 (136-145) mEq/L Potassium 3.9 (3.5-5.1) mEq/L Chloride 103 (98-107) mEq/L Carbon Dioxide 21 (21-32) mEq/L Anion Gap 17.9 H (5-15) BUN 38 H (7-18) mg/dL Creatinine 1.4 H (0.55-1.02) mg/dL Est Cr Clr Drug Dosing 29.04 mL/min Estimated GFR (MDRD) 38 (>60) mL/min BUN/Creatinine Ratio 27.1 H (14-18) Glucose 96 (80-115) mg/dL Lactic Acid 0.7 (0.4-2.0) mmol/L Calcium 9.0 (8.5-10.1) mg/dL Total Bilirubin 0.3 (0.2-1.0) mg/dL AST 27 (15-37) U/L ALT 26 (14-59) U/L Alkaline Phosphatase 156 H (46-116) U/L C-Reactive Protein 1.1 H* (<1.0) mg/dL Total Protein 7.9 (6.4-8.2) g/dl Albumin 3.4 (3.4-5.0) g/dl Globulin 4.5 gm/dL Albumin/Globulin Ratio 0.8 L (1-2) Urine Color (Yellow) Urine Appearance (Clear) Urine pH (5.0-8.0) Ur Specific Adams (1.005-1.030) Urine Protein (Negative) Urine Glucose (UA) (Negative) Urine Ketones (Negative) Urine Occult Blood (Negative) Urine Nitrite (Negative) Urine Bilirubin (Negative) Urine Urobilinogen (0.2-1.0) Ur Leukocyte Esterase (Negative) Urine RBC (0-5) /hpf Urine WBC (0-5) /hpf Ur Squamous Epith Cells (0-5) /hpf Urine Bacteria (FEW) /hpf Urine Mucus (FEW) /hpf 05/24/19 Range/Units 17:12 WBC (3.98-10.04) K/mm3 RBC (3.98-5.22) M/mm3 Hgb (11.2-15.7) gm/dl Hct (34.1-44.9) % MCV (79.4-94.8) fl MCH (25.6-32.2) pg MCHC (32.2-35.5) g/dl RDW Std Deviation (36.4-46.3) fL Plt Count (182-369) K/mm3 MPV (9.4-12.3) fl Neut % (Auto) (34.0-71.1) % Lymph % (Auto) (19.3-51.7) % Mills % (Auto) (4.7-12.5) % Eos % (Auto) (0.7-5.8) Baso % (Auto) (0.1-1.2) % Neut # (Auto) (1.56-6.13) K/mm3 Lymph # (Auto) (1.18-3.74) K/mm3 Mills # (Auto) (0.24-0.36) K/mm3 Eos # (Auto) (0.04-0.36) K/mm3 Baso # (Auto) (0.01-0.08) K/mm3 Sodium (136-145) mEq/L Potassium (3.5-5.1) mEq/L Chloride (98-107) mEq/L Carbon Dioxide (21-32) mEq/L Anion Gap (5-15) BUN (7-18) mg/dL Creatinine (0.55-1.02) mg/dL Est Cr Clr Drug Dosing mL/min Estimated GFR (MDRD) (>60) mL/min BUN/Creatinine Ratio (14-18) Glucose (80-115) mg/dL Lactic Acid (0.4-2.0) mmol/L Calcium (8.5-10.1) mg/dL Total Bilirubin (0.2-1.0) mg/dL AST (15-37) U/L ALT (14-59) U/L Alkaline Phosphatase (46-116) U/L C-Reactive Protein (<1.0) mg/dL Total Protein (6.4-8.2) g/dl Albumin (3.4-5.0) g/dl Globulin gm/dL Albumin/Globulin Ratio (1-2) Urine Color Yellow (Yellow) Urine Appearance Clear (Clear) Urine pH 6.5 (5.0-8.0) Ur Specific Adams 1.025 (1.005-1.030) Urine Protein 3+ H (Negative) Urine Glucose (UA) Negative (Negative) Urine Ketones Negative (Negative) Urine Occult Blood Trace-intact H (Negative) Urine Nitrite Negative (Negative) Urine Bilirubin Negative (Negative) Urine Urobilinogen 0.2 (0.2-1.0) Ur Leukocyte Esterase Trace H (Negative) Urine RBC 5-10 H (0-5) /hpf Urine WBC 5-10 H (0-5) /hpf Ur Squamous Epith Cells 5-10 H (0-5) /hpf Urine Bacteria Moderate H (FEW) /hpf Urine Mucus Few (FEW) /hpf Result Diagrams: 05/24/19 16:54 05/24/19 16:54 Zack Results Last 24 hrs: Microbiology 05/24/19 16:55 Urine Culture - Preliminary Urine, Clean Catch Sepsis Event Note - Evaluation Sepsis Screening Result: No Definite Risk - Focused Exam Vital Signs: Vital Signs Temp Pulse Resp BP Pulse Ox 05/25/19 03:24 97.9 F 77 20 130/78 97 05/24/19 21:18 97.9 F 71 14 154/106 H 99 Date Exam was Performed: 05/25/19 Time Exam was Performed: 11:55 - Problem List (1) Cellulitis in diabetic foot SNOMED Code(s): 692172417 ICD Code: E11.628 - TYPE 2 DIABETES MELLITUS WITH OTHER SKIN COMPLICATIONS; L03.119 - CELLULITIS OF UNSPECIFIED PART OF LIMB Status: Acute Priority: High Current Visit: Yes (2) Left against medical advice SNOMED Code(s): 904929707 ICD Code: Z53.29 - PROC/TRTMT NOT CRD OUT BEC PT DECISION FOR OTH REASONS Status: Acute Priority: High Current Visit: Yes (3) Osteomyelitis SNOMED Code(s): 22408873 ICD Code: M86.9 - OSTEOMYELITIS, UNSPECIFIED Status: Acute Priority: High Current Visit: Yes Qualifiers: Osteomyelitis type: unspecified type Osteomyelitis location: foot Laterality: right Qualified Code(s): M86.9 - Osteomyelitis, unspecified (4) Current smoker SNOMED Code(s): 43638037 ICD Code: F17.200 - NICOTINE DEPENDENCE, UNSPECIFIED, UNCOMPLICATED Status : Chronic Priority: Medium Current Visit: Yes (5) History of diabetic ulcer of foot SNOMED Code(s): 51410062568674492 ICD Code: Z86.31 - PERSONAL HISTORY OF DIABETIC FOOT ULCER Status: Chronic Priority: Medium Current Visit: Yes (6) A-fib SNOMED Code(s): 45057435 ICD Code: I48.91 - UNSPECIFIED ATRIAL FIBRILLATION Status: Chronic Priority: Low Current Visit: No Qualifiers: Atrial fibrillation type: unspecified Qualified Code(s): I48.91 - Unspecified atrial fibrillation (7) Angina pectoris SNOMED Code(s): 664347887 ICD Code: I20.9 - ANGINA PECTORIS, UNSPECIFIED Status: Chronic Priority: Low Current Visit: No (8) Arthritis SNOMED Code(s): 9763452 ICD Code: M19.90 - UNSPECIFIED OSTEOARTHRITIS, UNSPECIFIED SITE Status: Chronic Priority: Low Current Visit: No (9) Asthma SNOMED Code(s): 102270762 ICD Code: J45.909 - UNSPECIFIED ASTHMA, UNCOMPLICATED Status: Chronic Priority: Low Current Visit: No Qualifiers: Asthma severity: unspecified severity Asthma persistence: unspecified Asthma complication type: unspecified Qualified Code(s): J45.909 - Unspecified asthma, uncomplicated (10) Bipolar disorder SNOMED Code(s): 39420194 ICD Code: F31.9 - BIPOLAR DISORDER, UNSPECIFIED Status: Chronic Priority : Medium Current Visit: No Qualifiers: Active/Remission status: remission status unspecified Qualified Code(s): F31.9 - Bipolar disorder, unspecified (11) Bronchitis SNOMED Code(s): 23187691 ICD Code: J40 - BRONCHITIS, NOT SPECIFIED ACUTE OR CHRONIC Status: Chronic Priority: Low Current Visit: No (12) COPD (chronic obstructive pulmonary disease) SNOMED Code(s): 20244927 ICD Code: J44.9 - CHRONIC OBSTRUCTIVE PULMONARY DISEASE, UNSPECIFIED Status : Chronic Priority: Low Current Visit: No Qualifiers: COPD type: unspecified COPD Qualified Code(s): J44.9 - Chronic obstructive pulmonary disease, unspecified (13) Chronic constipation SNOMED Code(s): 458491055 ICD Code: K59.09 - OTHER CONSTIPATION Status: Chronic Priority: Low Current Visit: No (14) Chronic eczema SNOMED Code(s): 10139037 ICD Code: L30.9 - DERMATITIS, UNSPECIFIED Status: Chronic Priority: Low Current Visit: No (15) Chronic renal insufficiency SNOMED Code(s): 719318327 ICD Code: N18.9 - CHRONIC KIDNEY DISEASE, UNSPECIFIED Status: Chronic Priority: Low Current Visit: No Qualifiers: Chronic kidney disease stage: unspecified stage Qualified Code(s): N18.9 - Chronic kidney disease, unspecified (16) HLD (hyperlipidemia) SNOMED Code(s): 46471691 ICD Code: E78.5 - HYPERLIPIDEMIA, UNSPECIFIED Status: Chronic Priority: Low Current Visit: No Qualifiers: Hyperlipidemia type: unspecified Qualified Code(s): E78.5 - Hyperlipidemia , unspecified (17) HTN (hypertension) SNOMED Code(s): 29061219 ICD Code: I10 - ESSENTIAL (PRIMARY) HYPERTENSION Status: Chronic Priority : Low Current Visit: No Qualifiers: Hypertension type: unspecified Qualified Code(s): I10 - Essential (primary ) hypertension (18) History of [place] (myocardial infarction) SNOMED Code(s): 387173186 ICD Code: I25.2 - OLD MYOCARDIAL INFARCTION Status: Chronic Priority: Low Current Visit: No (19) Osteoporosis SNOMED Code(s): 70765299 ICD Code: M81.0 - AGE-RELATED OSTEOPOROSIS W/O CURRENT PATHOLOGICAL FRACTURE Status: Chronic Priority: Low Current Visit: No Qualifiers: Osteoporosis type: unspecified Presence of current pathological fracture: unspecified Qualified Code(s): M81.0 - Age-related osteoporosis without current pathological fracture (20) Renal calculus SNOMED Code(s): 85947436 ICD Code: N20.0 - CALCULUS OF KIDNEY Status: Chronic Priority: Low Current Visit: No (21) Type II diabetes mellitus SNOMED Code(s): 10967164 ICD Code: E11.9 - TYPE 2 DIABETES MELLITUS WITHOUT COMPLICATIONS Status: Chronic Priority: Medium Current Visit: No Qualifiers: Diabetes mellitus long-term insulin use: without bed bug exterminator use Diabetes mellitus complication status: with other specified complication Qualified Code (s): E11.69 - Type 2 diabetes mellitus with other specified complication Problem List Initiated/Reviewed/Updated: Yes Orders Last 24hrs: Active Orders 24 hr Category Date Time Status Patient Status [ADT] Routine ADT 05/24/19 19:58 Active Blood Glucose Check, Bedside [RC] WITHMEALSANDBED Care 05/24/19 22:26 Active Oxygen Therapy [RC] PRN Care 05/24/19 22:22 Active Up With Assistance [RC] BID Care 05/24/19 22:22 Active VTE/DVT Education [RC] DAILY Care 05/24/19 22:22 Active Vital Signs [RC] Q4HR Care 05/24/19 22:22 Active Consistent Carbohydrate Diet [DIET] Diet 05/25/19 Breakfast Active CULTURE BLOOD [BC] Stat Lab 05/24/19 20:25 Received CULTURE BLOOD [BC] Stat Lab 05/24/19 20:35 Received CULTURE URINE [RM] Stat Lab 05/24/19 16:55 Results Enoxaparin [Lovenox] Med 05/25/19 09:00 Active 30 mg SUBCUT DAILY Insulin Lispro [HumaLOG] Med 05/25/19 07:00 Active See Protocol SUBCUT QIDACANDBED Nicotine [Habitrol] Med 05/25/19 09:00 Active 21 mg TRDERM DAILY Pharmacy to Dose - Vancomycin Med 05/24/19 19:56 Pending 1 dose .XX ONETIME ONE Remove Patch Med 05/26/19 09:00 Active 0 ea TRDERM DAILY Sodium Chloride 0.9% [Normal Saline] 1,000 ml Med 04/09/20 22:30 Active IV ASDIRECTED Sodium Chloride 0.9% [Saline Flush] Med 05/24/19 17:49 Active 10 ml FLUSH ONETIME PRN cefTRIAXone [Rocephin] 2 gm Med 05/24/19 22:00 Active Sodium Chloride 0.9% [Normal Saline] 100 ml IV Q24H oxyCODONE Med 05/24/19 22:25 Active 5 - 10 mg PO Q4H PRN Blood Culture x2 Reflex Set [OM.PC] Stat Ot 05/24/19 19:57 Ordered Peripheral IV Insertion Adult [OM.PC] Stat Oth 05/24/19 16:39 Ordered Resuscitation Status Routine Resus Stat 05/24/19 22:22 Ordered Medication Orders Enoxaparin Sodium (Lovenox) 30 mg SUBCUT DAILY [facility] Ceftriaxone Sodium 2 gm/ (Sodium Chloride) 100 mls @ 200 mls/hr IV Q24H [facility] Last Admin: 05/24/19 23:04 Dose: 200 mls/hr Sodium Chloride (Normal Saline) 1,000 mls @ 100 mls/hr IV ASDIRECTED [facility] Insulin Human Lispro (Humalog) 0 unit SUBCUT QIDACANDBED [facility]; Protocol Last Admin: 05/25/19 07:50 Dose: Not Given Miscellaneous Information (Remove Patch) 0 ea TRDERM DAILY [facility] Nicotine (Habitrol) 21 mg TRDERM DAILY [facility] Last Admin: 05/25/19 07:50 Dose: 21 mg Oxycodone HCl (Oxycodone) 5 - 10 mg PO Q4H PRN PRN Reason: Pain Sodium Chloride (Saline Flush) 10 ml FLUSH ONETIME PRN PRN Reason: Keep Vein Open Last Admin: 05/24/19 18:20 Dose: 10 ml Vancomycin HCl (Pharmacy To Dose - Vancomycin) 1 dose .XX ONETIME ONE Stop: 05/24/19 19:57 Assessment/Plan Comment:: I/P Cellulitis/Osteomyelitis -Patient reports symptoms started 2 weeks ago -Was seen at [facility] x2 - no antibiotics given, X-ray showed possible osteomyelitis - sent to ED -History of diabetes and diabetic foot ulcers -WBC 5.21, Lactic acid 0.7 -Blood cultures obtained and pending -CT in ED shows diffuse tissue swelling, Destructive change of PIP joint of first toe, Likely osteomyelitis -Dr. Campos, Ortho consulted in ED - reports osteomyelitis requires long-term IV abx and patient should be admitted to medical floor -Given IV vancomycin in ED - continue -Rocephin added on floor -Will likely require PICC line for IV abx -IV fluids as ordered -Sepsis Criteria: Suspected bacterial infection, No fever, No tachycardia, No leukocytosis, No Tachypnea; Lactic acid 0.8 -Does not meet criteria -Obtain new Hgb A1C Tobacco use -Nicotine patches -Cessation counseling Chronic renal insufficiency -Baseline creatinine appears to be 1-2-1.5 and GFR of 35-45 per prior visits -IV bolus given in ED -IV fluids as ordered -Avoid nephrotoxic agents if able Chronic: A. fib angina HLD HTN prior [place] asthma recurrent bronchitis COPD chronic constipation chronic renal insufficiency renal calculus arthritis osteoporosis bipolar disorder type II DM eczema diabetic foot ulcers Plan: Admit to medical floor Routine AM labs Reconcile home medications Other orders as indicated above Hold off PT/OT for now CM/SW for discharge planning DVT prophylaxis: Heparin Code status: Full code PCP: Galindo edwards/[facility] LOS: 3-4 days pending plan - may require amputation of great toe - Mortality Measure Prognosis:: Good
[2019-05-25] MEDS ORDERED: Enoxaparin 30 MG/0.3 ML Syringe SUBCUT SCH (09:00)
[2019-05-25] MEDS ORDERED: Albuterol/Ipratropium 3.0-0.5 MG/3 ML Neb Soln INH PRN (09:14)
[2019-05-25] MEDS ORDERED: ALBUTEROL IH SCH (09:15)
[2019-05-25] MEDS ORDERED: Doxycycline 100 MG Cap PO SCH (09:15)
[2019-05-25] MEDS ORDERED: Montelukast 10 MG Tab PO SCH (09:15)
[2019-05-25] MEDS ORDERED: Non-Formulary Medication 1 Each (Fluticasone/Salmeterol 1 PUFF) INH SCH (09:15)
[2019-05-25] MEDS ORDERED: Aspirin 81 MG Tab.Chew PO SCH (09:15)
[2019-05-25] MEDS ORDERED: IPRATROPIUM IH SCH (09:15)
[2019-05-25] MEDS ORDERED: Pantoprazole 40 MG Tab.CR PO SCH (09:15)
[2019-05-25] MEDS ORDERED: Mirtazapine 30 MG Tab PO SCH (09:15)
[2019-05-25] MEDS ORDERED: Metoprolol Succinate 25 MG Tab.ER PO SCH (09:15)
[2019-05-25] MEDS ORDERED: Diltiazem IR 30 MG Tab PO SCH (09:15)
[2019-05-25] MEDS ORDERED: Clindamycin HCl 150 MG Cap PO SCH ×2 (09:45)
--- NOTE | 2019-05-25 09:57 | PCM.DCSUM1 ---
Discharge Summary - Hospital Course HPI Initial Comments: Karolyn Boles is a 68 yo female who presented to ED on 05/24/2019 with reports of an infected toe. She reports symptoms began around 2 weeks ago and that she was seen at the [facility] in [place] but was not given any prescription for antibiotics. She returned there after symptoms worsened and they obtained an x-ray. They then called stating that they believe she has osteomyelitis in her right great toe and recommended she come to the ER. She states that she has had swelling and drainage of that toe but denies any fever, chills, nausea, vomiting. She reports a history of type II DM but states that she has been deemed no longer diabetic since she has had significant weight loss. In the ED temp was 97 9 Fahrenheit. Pulse 98. Respirations 16. Blood pressure 122/76. Pulse ox 90%. WBC is normal at 5.21. Hemoglobin low at 10.8. Hematocrit low at 32.1. She is normocytic. Puts her good at 315,000. Neutrophils are normal at 61.6%. Sodium is 138. Potassium 3.9. Chloride 103. Carbon oxide 21. Anion gap is 17.9. BUN is 38. Creatinine 1.4. GFR is 38. Glucose 96. Lactic acid 0.7. Calcium 9.0. Bilirubin 0.3. AST is 27, ALT 26 , alkaline phosphatase 156. CRP is 1.1. Albumin is 3.4. UA is obtained and is negative however 3+ protein, trace intact blood, trace leukocyte esterase, 5- 10 RBCs, 5-10 WBCs, 5-10 squamous epithelial cells, and moderate bacteria are noted. She is given a liter of IV fluid and started on vancomycin. She is also given IV Dilaudid for pain. CT scan of the right foot is obtained showing diffuse tissue swelling primarily within the first toe. Findings are compatible for diffuse cellulitis. Active change around the PIP joint of the first toe compatible with osteomyelitis. A small cystic area within the distal first metatarsal compatible with an additional area of osteomyelitis. Dr. Araiza today, orthopedist, was contacted and states that the patient will require long- term antibiotics. She carries a history of A. fib, angina, HLD, HTN, prior DE, asthma, recurrent bronchitis, COPD, chronic constipation, chronic renal insufficiency, renal calculus, arthritis, osteoporosis, bipolar disorder, type II DM, eczema, diabetic foot ulcers. She is a current daily smoker. She reports she sees [facility] for a primary care provider. She is a full code. She subsequently admitted for IV antibiotics and management of her infected toes. Diagnosis: Stroke: No - Discharge Data Discharge Date: 05/25/19 (Admit date: 05/24/19) Discharge Disposition: Against Medical Advice 07 Condition: Stable - Referral to Home Health Primary Care Physician: PCP None - Discharge Diagnosis/Problem(s) (1) Left against medical advice SNOMED Code(s): 883271298 ICD Code: Z53.29 - PROC/TRTMT NOT CRD OUT BEC PT DECISION FOR OTH REASONS Status: Acute Priority: High Current Visit: Yes (2) Osteomyelitis SNOMED Code(s): 86494992 ICD Code: M86.9 - OSTEOMYELITIS, UNSPECIFIED Status: Acute Priority: High Current Visit: Yes Qualifiers: Osteomyelitis type: unspecified type Osteomyelitis location: foot Laterality: right Qualified Code(s): M86.9 - Osteomyelitis, unspecified (3) Cellulitis in diabetic foot SNOMED Code(s): 246928337 ICD Code: E11.628 - TYPE 2 DIABETES MELLITUS WITH OTHER SKIN COMPLICATIONS; L03.119 - CELLULITIS OF UNSPECIFIED PART OF LIMB Status: Acute Priority: High Current Visit: Yes (4) A-fib SNOMED Code(s): 11445402 ICD Code: I48.91 - UNSPECIFIED ATRIAL FIBRILLATION Status: Chronic Priority: Low Current Visit: No Qualifiers: Atrial fibrillation type: unspecified Qualified Code(s): I48.91 - Unspecified atrial fibrillation (5) Angina pectoris SNOMED Code(s): 544206953 ICD Code: I20.9 - ANGINA PECTORIS, UNSPECIFIED Status: Chronic Priority: Low Current Visit: No (6) HLD (hyperlipidemia) SNOMED Code(s): 29910113 ICD Code: E78.5 - HYPERLIPIDEMIA, UNSPECIFIED Status: Chronic Priority: Low Current Visit: No Qualifiers: Hyperlipidemia type: unspecified Qualified Code(s): E78.5 - Hyperlipidemia , unspecified (7) HTN (hypertension) SNOMED Code(s): 26924663 ICD Code: I10 - ESSENTIAL (PRIMARY) HYPERTENSION Status: Chronic Priority : Low Current Visit: No Qualifiers: Hypertension type: unspecified Qualified Code(s): I10 - Essential (primary ) hypertension (8) History of DE (myocardial infarction) SNOMED Code(s): 962666839 ICD Code: I25.2 - OLD MYOCARDIAL INFARCTION Status: Chronic Priority: Low Current Visit: No (9) Asthma SNOMED Code(s): 976031297 ICD Code: J45.909 - UNSPECIFIED ASTHMA, UNCOMPLICATED Status: Chronic Priority: Low Current Visit: No Qualifiers: Asthma severity: unspecified severity Asthma persistence: unspecified Asthma complication type: unspecified Qualified Code(s): J45.909 - Unspecified asthma, uncomplicated (10) Bronchitis SNOMED Code(s): 48042570 ICD Code: J40 - BRONCHITIS, NOT SPECIFIED ACUTE OR CHRONIC Status: Chronic Priority: Low Current Visit: No (11) COPD (chronic obstructive pulmonary disease) SNOMED Code(s): 65786047 ICD Code: J44.9 - CHRONIC OBSTRUCTIVE PULMONARY DISEASE, UNSPECIFIED Status : Chronic Priority: Low Current Visit: No Qualifiers: COPD type: unspecified COPD Qualified Code(s): J44.9 - Chronic obstructive pulmonary disease, unspecified (12) Chronic constipation SNOMED Code(s): 175505402 ICD Code: K59.09 - OTHER CONSTIPATION Status: Chronic Priority: Low Current Visit: No (13) Chronic renal insufficiency SNOMED Code(s): 765439881 ICD Code: N18.9 - CHRONIC KIDNEY DISEASE, UNSPECIFIED Status: Chronic Priority: Low Current Visit: No Qualifiers: Chronic kidney disease stage: unspecified stage Qualified Code(s): N18.9 - Chronic kidney disease, unspecified (14) Renal calculus SNOMED Code(s): 87091480 ICD Code: N20.0 - CALCULUS OF KIDNEY Status: Chronic Priority: Low Current Visit: No (15) Arthritis SNOMED Code(s): 6728092 ICD Code: M19.90 - UNSPECIFIED OSTEOARTHRITIS, UNSPECIFIED SITE Status: Chronic Priority: Low Current Visit: No (16) Osteoporosis SNOMED Code(s): 79514263 ICD Code: M81.0 - AGE-RELATED OSTEOPOROSIS W/O CURRENT PATHOLOGICAL FRACTURE Status: Chronic Priority: Low Current Visit: No Qualifiers: Osteoporosis type: unspecified Presence of current pathological fracture: unspecified Qualified Code(s): M81.0 - Age-related osteoporosis without current pathological fracture (17) Bipolar disorder SNOMED Code(s): 69045017 ICD Code: F31.9 - BIPOLAR DISORDER, UNSPECIFIED Status: Chronic Priority : Medium Current Visit: No Qualifiers: Active/Remission status: remission status unspecified Qualified Code(s): F31.9 - Bipolar disorder, unspecified (18) Type II diabetes mellitus SNOMED Code(s): 64570784 ICD Code: E11.9 - TYPE 2 DIABETES MELLITUS WITHOUT COMPLICATIONS Status: Chronic Priority: Medium Current Visit: No Qualifiers: Diabetes mellitus shelter insulin use: without shelter use Diabetes mellitus complication status: with other specified complication Qualified Code (s): E11.69 - Type 2 diabetes mellitus with other specified complication (19) Chronic eczema SNOMED Code(s): 60100520 ICD Code: L30.9 - DERMATITIS, UNSPECIFIED Status: Chronic Priority: Low Current Visit: No (20) History of diabetic ulcer of foot SNOMED Code(s): 82675744748769057 ICD Code: Z86.31 - PERSONAL HISTORY OF DIABETIC FOOT ULCER Status: Chronic Priority: Medium Current Visit: Yes (21) Current smoker SNOMED Code(s): 70605386 ICD Code: F17.200 - NICOTINE DEPENDENCE, UNSPECIFIED, UNCOMPLICATED Status : Chronic Priority: Medium Current Visit: Yes - Patient Summary/Data Labs Pending at D/C: Blood cultures Urine Cultures Recommended Follow-up Testing/Procedures: Follow-up with primary care provider in 3-5 days Follow-up with podiatry as soon as possible Hospital Course: Karolyn was admitted to the floor for management of her right great toe cellulitis and suspected osteomyelitis. Once on the floor she became very upset that she was not allowed to have a cigarette. She stated multiple times that she was going to leave and that we could not stop her. Dr. Patino and myself went in the room to explain to the patient that it was in her best interest to stay as she would need likely long-term IV antibiotics and possible amputation of her toe or even part of her foot. It was explained to her multiple times that her blood cultures have not returned and that she may have bacteria in her blood. It was explained that if she does not follow treatment she may lose part of her toe, her foot, or potentially even from sepsis. Patient reported that she did not care that she wants to be discharged and go have a cigarette. Patient was offered nicotine patches which she accepted but stated that she was still going to leave. Again advised the patient that it was in her best interest to stay as she would likely need long-term IV antibiotics and she refused. Because of this discussion ensued with Dr. Patino and pharmacy about what to prescribe the patient to provide some type of antibiotic coverage and also allowing for her poor kidney function. Decision was made on clindamycin 4 times daily for at least 4 weeks. Myself and charge nurse, Carmen, again went into the room and attempted to explain to the patient that she is a very high risk for serious injury, amputation, and if she refuses continued IV antibiotics and continue treatment. She again reiterated that she does not care. She was A&O x3. Patient was then advised to follow-up with podiatry in the very near future. She stated that she has seen Dr. Pérez at [facility] before and does not want to see him again. She was then advised that she can see a provider in [facility], or wherever she can find a tactical intelligence officer. She stated that she does not want to follow-up at [facility] as she feels like they do nothing for her. She was advised that there are multiple clinics in town between [place] and [facility] and she should pick a provider and see them in the very near future. She stated that she would like to see someone at our facility. Attempts were again made to have the patient stay and she refused. AMA form was signed. Prescription for clindamycin was sent to clinic pharmacy. She refused nicotine patches prior to discharge. She was given a list of resources available to her should she change her mind and decide to stop smoking. She was advised to resume all home medications. Discharge orders were placed although, again patient was advised multiple times that she is being discharged AGAINST MEDICAL ADVICE. - Patient Instructions Diet: Usual Diet as Tolerated Activity: As Tolerated Showering/Bathing: May Shower Wound/Incision Care: Keep Operative Site/Wound Site Clean and Dry, Change Dressing Daily Notify Provider of: Fever, Increased Pain, Nausea and/or Vomiting Other/Special Instructions: Follow-up with primary care provider within 3-5 days of discharge, sooner if needed. Recommend you follow-up with podiatry soon after discharge. You have an infection in the bone of your big toe. We prescribed 4 weeks of antibiotics prior to you leaving. You will likely require longer duration of treatment. This will be at the descretion of podiatry and your primary care provider. Resume home medicatoins as directed. We discussed your smoking status and you indicated you intend to continue smoking. You were given community resources that can assist with this, should you change your mind. As we discussed, it is in your best interest to stay in the hospital and recieve IV antibiotics. We are very concerned about the infection in the bone of your foot and that it my spread into your blood. You repeatedly indicated that you do not want to stay and are going to leave "against medical advice." You were prescribed an antibitotic. You will need to follow-up with podiatry and your primary care provider as you may need to have your toe or part of your foot amputated. Again, you are leaving against medical advice, as we feel you need long-term IV antibiotics. Should symptoms return or worsen contact your primary care provider, a tactical intelligence officer, or return to the Emergency Department. - Discharge Plan *PRESCRIPTION DRUG MONITORING PROGRAM REVIEWED*: No *COPY OF PRESCRIPTION DRUG MONITORING REPORT IN PATIENT DIONISIO: No Prescriptions/Med Rec: clindamycin HCL [Cleocin] 450 mg PO QID #112 cap Home Medications: Home Meds Albuterol/Ipratropium [Combivent Respimat] 2 puff IH BID 06/12/18 [History] Albuterol/Ipratropium [DuoNeb 3.0-0.5 MG/3 ML] 3 ml INH DAILY PRN 06/12/18 [ History] Aspirin 81 mg PO DAILY 06/12/18 [History] Diltiazem HCl [Cardizem] 30 mg PO DAILY 06/12/18 [History] Fish Oil/Allen-3 Fatty Acids [Fish Oil] 1 each PO DAILY 06/12/18 [History] Fluticasone/Salmeterol [Advair 250-50 Diskus] 1 puff INH BID 06/12/18 [History] Gabapentin [Neurontin] 800 mg PO DAILY 06/12/18 [History] Metoprolol Succinate [Toprol XL] 25 mg PO DAILY 06/12/18 [History] Mirtazapine 45 mg PO DAILY 06/12/18 [History] Montelukast [Singulair] 10 mg PO DAILY 06/12/18 [History] Pantoprazole [ProTONIX] 40 mg PO DAILY 06/12/18 [History] Vit #76/Iron,Carb/Fa [Prenatabs Rx] 1 each PO DAILY 06/12/18 [History] clindamycin HCL [Cleocin] 450 mg PO QID #112 cap 05/25/19 [Rx] Oxygen Therapy Mode: Room Air Patient Handouts: Steps to Quit Smoking, Sepsis, Self Care, Adult - Discharge Summary/Plan Comment DC Time >30 min.: Yes (60 minutes) - General Info Date of Service: 05/25/19 Admission Dx/Problem (Free Text: Admission Diagnosis/Problem Admission Diagnosis/Problem Osteomyelitis Functional Status: Reports: Pain Controlled, Tolerating Diet, Ambulating, Urinating. Denies: New Symptoms - Review of Systems General: Reports: No Symptoms. Denies: Fever, Weakness, Fatigue, Malaise, Chills HEENT: Reports: No Symptoms. Denies: Headaches, Sore Throat Pulmonary: Reports: No Symptoms. Denies: Shortness of Breath, Cough, Sputum, Wheezing Cardiovascular: Reports: No Symptoms. Denies: Chest Pain, Palpitations, Dyspnea on Exertion Gastrointestinal: Reports: No Symptoms. Denies: Abdominal Pain, Constipation, Diarrhea, Nausea, Vomiting Genitourinary: Reports: No Symptoms. Denies: Pain Musculoskeletal: Reports: Foot Pain Skin: Reports: No Symptoms. Denies: Cyanosis Neurological: Reports: No Symptoms. Denies: Confusion, Difficulty Walking, Gait Disturbance Psychiatric: Reports: Mood Lability, Anxiety, Agitation - Patient Data Vitals - Most Recent: Last Vital Signs Temp 97.9 F 05/25/19 03:24 Pulse 77 05/25/19 03:24 Resp 20 05/25/19 03:24 BP 130/78 05/25/19 03:24 Pulse Ox 97 05/25/19 03:24 Weight - Most Recent: 205 lb 9.6 oz I&O - Last 24 hours: Intake & Output 05/24/19 05/25/19 05/25/19 22:59 06:59 14:59 Intake Total 1005 Output Total 800 Balance 205 Lab Results - Last 24 hrs: Laboratory Results - last 24 hr 05/24/19 05/24/19 05/24/19 Range/Units 16:54 16:54 16:54 WBC 5.21 (3.98-10.04) K/mm3 RBC 3.86 L (3.98-5.22) M/mm3 Hgb 10.8 L (11.2-15.7) gm/dl Hct 32.1 L (34.1-44.9) % MCV 83.2 D (79.4-94.8) fl MCH 28.0 (25.6-32.2) pg MCHC 33.6 (32.2-35.5) g/dl RDW Std Deviation 44.3 (36.4-46.3) fL Plt Count 315 D (182-369) K/mm3 MPV 9.6 (9.4-12.3) fl Neut % (Auto) 61.6 (34.0-71.1) % Lymph % (Auto) 26.3 (19.3-51.7) % [place] % (Auto) 7.9 (4.7-12.5) % Eos % (Auto) 3.6 (0.7-5.8) Baso % (Auto) 0.4 (0.1-1.2) % Neut # (Auto) 3.21 (1.56-6.13) K/mm3 Lymph # (Auto) 1.37 (1.18-3.74) K/mm3 [place] # (Auto) 0.41 H (0.24-0.36) K/mm3 Eos # (Auto) 0.19 (0.04-0.36) K/mm3 Baso # (Auto) 0.02 (0.01-0.08) K/mm3 Sodium 138 (136-145) mEq/L Potassium 3.9 (3.5-5.1) mEq/L Chloride 103 (98-107) mEq/L Carbon Dioxide 21 (21-32) mEq/L Anion Gap 17.9 H (5-15) BUN 38 H (7-18) mg/dL Creatinine 1.4 H (0.55-1.02) mg/dL Est Cr Clr Drug Dosing 29.04 mL/min Estimated GFR (MDRD) 38 (>60) mL/min BUN/Creatinine Ratio 27.1 H (14-18) Glucose 96 (80-115) mg/dL Lactic Acid 0.7 (0.4-2.0) mmol/L Calcium 9.0 (8.5-10.1) mg/dL Total Bilirubin 0.3 (0.2-1.0) mg/dL AST 27 (15-37) U/L ALT 26 (14-59) U/L Alkaline Phosphatase 156 H (46-116) U/L C-Reactive Protein 1.1 H* (<1.0) mg/dL Total Protein 7.9 (6.4-8.2) g/dl Albumin 3.4 (3.4-5.0) g/dl Globulin 4.5 gm/dL Albumin/Globulin Ratio 0.8 L (1-2) Urine Color (Yellow) Urine Appearance (Clear) Urine pH (5.0-8.0) Ur Specific [place] (1.005-1.030) Urine Protein (Negative) Urine Glucose (UA) (Negative) Urine Ketones (Negative) Urine Occult Blood (Negative) Urine Nitrite (Negative) Urine Bilirubin (Negative) Urine Urobilinogen (0.2-1.0) Ur Leukocyte Esterase (Negative) Urine RBC (0-5) /hpf Urine WBC (0-5) /hpf Ur Squamous Epith Cells (0-5) /hpf Urine Bacteria (FEW) /hpf Urine Mucus (FEW) /hpf 05/24/19 Range/Units 17:12 WBC (3.98-10.04) K/mm3 RBC (3.98-5.22) M/mm3 Hgb (11.2-15.7) gm/dl Hct (34.1-44.9) % MCV (79.4-94.8) fl MCH (25.6-32.2) pg MCHC (32.2-35.5) g/dl RDW Std Deviation (36.4-46.3) fL Plt Count (182-369) K/mm3 MPV (9.4-12.3) fl Neut % (Auto) (34.0-71.1) % Lymph % (Auto) (19.3-51.7) % [place] % (Auto) (4.7-12.5) % Eos % (Auto) (0.7-5.8) Baso % (Auto) (0.1-1.2) % Neut # (Auto) (1.56-6.13) K/mm3 Lymph # (Auto) (1.18-3.74) K/mm3 [place] # (Auto) (0.24-0.36) K/mm3 Eos # (Auto) (0.04-0.36) K/mm3 Baso # (Auto) (0.01-0.08) K/mm3 Sodium (136-145) mEq/L Potassium (3.5-5.1) mEq/L Chloride (98-107) mEq/L Carbon Dioxide (21-32) mEq/L Anion Gap (5-15) BUN (7-18) mg/dL Creatinine (0.55-1.02) mg/dL Est Cr Clr Drug Dosing mL/min Estimated GFR (MDRD) (>60) mL/min BUN/Creatinine Ratio (14-18) Glucose (80-115) mg/dL Lactic Acid (0.4-2.0) mmol/L Calcium (8.5-10.1) mg/dL Total Bilirubin (0.2-1.0) mg/dL AST (15-37) U/L ALT (14-59) U/L Alkaline Phosphatase (46-116) U/L C-Reactive Protein (<1.0) mg/dL Total Protein (6.4-8.2) g/dl Albumin (3.4-5.0) g/dl Globulin gm/dL Albumin/Globulin Ratio (1-2) Urine Color Yellow (Yellow) Urine Appearance Clear (Clear) Urine pH 6.5 (5.0-8.0) Ur Specific [place] 1.025 (1.005-1.030) Urine Protein 3+ H (Negative) Urine Glucose (UA) Negative (Negative) Urine Ketones Negative (Negative) Urine Occult Blood Trace-intact H (Negative) Urine Nitrite Negative (Negative) Urine Bilirubin Negative (Negative) Urine Urobilinogen 0.2 (0.2-1.0) Ur Leukocyte Esterase Trace H (Negative) Urine RBC 5-10 H (0-5) /hpf Urine WBC 5-10 H (0-5) /hpf Ur Squamous Epith Cells 5-10 H (0-5) /hpf Urine Bacteria Moderate H (FEW) /hpf Urine Mucus Few (FEW) /hpf [facility] Results - Last 24 hrs: Microbiology 05/24/19 16:55 Urine Culture - Preliminary Urine, Clean Catch Med Orders - Current: Current Medications Albuterol/Ipratropium (Duoneb 3.0-0.5 Mg/3 Ml) 3 ml INH DAILY PRN PRN Reason: Dyspnea Aspirin (Aspirin) 81 mg PO DAILY [facility] Clindamycin HCl (Cleocin) 450 mg PO QID [facility] Diltiazem HCl (Cardizem) 30 mg PO DAILY [facility] Enoxaparin Sodium (Lovenox) 30 mg SUBCUT DAILY [facility] Sodium Chloride (Normal Saline) 1,000 mls @ 100 mls/hr IV ASDIRECTED [facility] Insulin Human Lispro (Humalog) 0 unit SUBCUT QIDACANDBED [facility]; Protocol Last Admin: 05/25/19 07:50 Dose: Not Given Metoprolol Succinate (Toprol Xl) 25 mg PO DAILY [facility] Mirtazapine (Remeron) 45 mg PO DAILY [facility] Miscellaneous Information (Remove Patch) 0 ea TRDERM DAILY [facility] Montelukast Sodium (Singulair) 10 mg PO DAILY [facility] Nicotine (Habitrol) 21 mg TRDERM DAILY [facility] Last Admin: 05/25/19 07:50 Dose: 21 mg Non-Formulary Medication (Albuterol/Ipratropium) 2 puff IH BID [facility] Non-Formulary Medication (Fluticasone/Salmeterol) 1 puff INH BID [facility] Non-Formulary Medication (Gabapentin) 800 mg PO DAILY [facility] Oxycodone HCl (Oxycodone) 5 - 10 mg PO Q4H PRN PRN Reason: Pain Pantoprazole Sodium (Protonix) 40 mg PO DAILY [facility] Sodium Chloride (Saline Flush) 10 ml FLUSH ONETIME PRN PRN Reason: Keep Vein Open Last Admin: 05/24/19 18:20 Dose: 10 ml Discontinued Medications Clindamycin HCl (Cleocin) 450 mg PO QID [facility] Clindamycin HCl (Cleocin) 450 mg PO Q8H [facility] Hydromorphone HCl (Dilaudid) 0.5 mg IVPUSH ONETIME ONE Stop: 05/24/19 17:18 Last Admin: 05/24/19 17:30 Dose: 0.5 mg Sodium Chloride (Normal Saline) 1,000 mls @ 999 mls/hr IV ASDIRECTED [facility] Last Admin: 05/24/19 17:30 Dose: 150 mls/hr Sodium Chloride (Normal Saline) 1,000 mls @ 150 mls/hr IV ASDIRECTED [facility] Last Infusion: 05/24/19 23:05 Dose: 100 mls/hr Vancomycin HCl 1.25 gm/ Sodium (Chloride) 250 mls @ 125 mls/hr IV ONETIME ONE Stop: 05/24/19 22:29 Last Admin: 05/24/19 20:49 Dose: 125 mls/hr Ceftriaxone Sodium 2 gm/ (Sodium Chloride) 100 mls @ 200 mls/hr IV Q24H [facility] Last Admin: 05/24/19 23:04 Dose: 200 mls/hr Iopamidol (Isovue-300 (61%)) 100 ml IVPUSH ONETIME ONE Stop: 05/24/19 17:50 Last Admin: 05/24/19 18:20 Dose: 100 ml Mirtazapine (Remeron) 45 mg PO ONETIME ONE Stop: 05/24/19 22:26 Last Admin: 05/24/19 22:45 Dose: 45 mg Sodium Chloride (Saline Flush) 10 ml FLUSH ASDIRECTED PRN PRN Reason: Keep Vein Open Last Admin: 05/24/19 17:12 Dose: 10 ml Vancomycin HCl (Pharmacy To Dose - Vancomycin) 1 dose .XX ONETIME ONE Stop: 05/24/19 19:57 Vancomycin HCl (Vancomycin) Confirm Administered Dose 1 gm .ROUTE .STK-MED ONE Stop: 05/24/19 20:39 Last Admin: 05/24/19 21:06 Dose: Not Given - Exam Quality Assessment: Reports: DVT Prophylaxis. Denies: Supplemental Oxygen General: Reports: Alert, Oriented, Cooperative (mostly ), No Acute Distress HEENT: Reports: Pupils Equal, Pupils Reactive, Mucous Membr. Moist/[place] Neck: Reports: Supple, Trachea Midline Lungs: Reports: Clear to Auscultation, Normal Respiratory Effort, Decreased Breath Sounds Cardiovascular: Reports: Regular Rate, Regular Rhythm GI/Abdominal Exam: Normal Bowel Sounds, Soft, Non-Tender, No Distention (Female) Exam: Deferred Rectal (Female) Exam: Deferred Back Exam: Reports: Normal Inspection, Full Range of Motion Extremities: Normal Range of Motion, Normal Capillary Refill, Other (Edematous great toe extending into the space of the second digit. Skin is purple. Patient reports sensation throughout toe. Reports toe is painful with palpitation. Area of protruding tissue on dorsal aspect of toe near PIP joint. No drainage currently.) Skin: Reports: Warm, Dry, Intact Neurological: Reports: No New Focal Deficit Psy/Mental Status: Reports: Alert, Labile Mood, Anxious, Agitated (wants to leave and wants cigarette )
[2019-05-25] MEDS ORDERED: Gabapentin 600 MG Tab PO SCH (11:00)
[2019-05-25] MEDS ORDERED: Gabapentin 100 MG Cap PO SCH (11:00)
[2019-05-25] MEDS: Clindamycin HCl 150 MG Cap PO SCH (19:10)
== END 2019-05-25 11:25 | disposition left against medical advice (07) | DRG 638 ==
LOC: JD.ED 16:11 → JD.MS 19:58
PROVIDERS: ADMIT Family Medicine; ATTEND Family Medicine
DX: M86.9 Osteomyelitis, unspecified (principal); E11.69 Type 2 diabetes mellitus with other specified complication; M86.8X7 Other osteomyelitis, ankle and foot; E11.628 Type 2 diabetes mellitus with other skin complications; L03.031 Cellulitis of right toe; I48.91 Unspecified atrial fibrillation; E78.5 Hyperlipidemia, unspecified; J44.9 Chronic obstructive pulmonary disease, unspecified; K59.09 Other constipation; F17.200 Nicotine dependence, unspecified, uncomplicated; I12.9 Hypertensive chronic kidney disease with stage 1 through stage 4 chronic kidney disease, or unspecified chronic kidney disease; E11.22 Type 2 diabetes mellitus with diabetic chronic kidney disease; N18.9 Chronic kidney disease, unspecified; M19.90 Unspecified osteoarthritis, unspecified site; M81.0 Age-related osteoporosis without current pathological fracture; F31.9 Bipolar disorder, unspecified; F17.210 Nicotine dependence, cigarettes, uncomplicated; I20.9 Angina pectoris, unspecified; E78.00 Pure hypercholesterolemia, unspecified; H54.7 Unspecified visual loss; I25.2 Old myocardial infarction; Z87.442 Personal history of urinary calculi; Z86.31 Personal history of diabetic foot ulcer; Z79.899 Other long term (current) drug therapy; Z79.82 Long term (current) use of aspirin; Z88.0 Allergy status to penicillin
CPT/HCPCS: 36415; 73701; 80053; 81001; 83605; 85025; 86140; 87086; 96361; 96374; 99284; J1170; J7030; Q9967; 82962; 87040; A9270-GY; J0696; J3370; J7050

== ENCOUNTER 2020-06-04 22:30 | Emergency (ER) | payer MEDICARE, OTHER ==
[2020-06-05] MEDS ORDERED: Orphenadrine 100 MG Tab.ER PO STA (00:26)
[2020-06-05] MEDS ORDERED: Ibuprofen 600 MG Tab PO ONE (00:26)
--- NOTE | 2020-06-05 00:33 | EDM.PDOC ---
ED HPI GENERAL MEDICAL PROBLEM - General Chief Complaint: Neck Problem Stated Complaint: fainting and lump on neck Time Seen by Provider: 06/05/20 00:05 Source of Information: Reports: Patient, Family () History Limitations: Reports: No Limitations - History of Present Illness INITIAL COMMENTS - FREE TEXT/NARRATIVE: Mrs. Boles is a very pleasant 69-year-old woman who now presents the ED stating that she developed sharp pain behind her left ear 3 days ago, on 06/01/2020. The pain comes and goes, typically lasting 1 to 2 hours, occurring about twice a day. When it occurs, she states that it is so severe that she faints. The pain is made worse if she stands up, made better if she is lying down and puts her feet up. She has no pain whatsoever if she is lying down. The patient denies suffering any injury to the left side of her neck or head, but states that she feels a painful lump behind her ear. No prior similar symptoms. The patient states that she has not taken any rhxk-[id number]-[id number] or home remedies, out of fear of taking medications. Here in the ED, the patient is found to be hemodynamically stable, afebrile, saturating 97% on room air. She appears to be perfectly recumbent while in a semirecumbent position on a gurney. Prior to Tuesday, the patient denies having a recent fever, chills, sore throat, ear pain, nasal or sinus congestion, cough, dyspnea, chest pain, palpitations, nausea, vomiting, constipation, diarrhea, abdominal pain, urinary symptoms, recent weight gain or weight loss, recent bloody bowel movements or black bowel movements, recent joint aches, headaches, or rashes. I reviewed the PMHx/PSHx/SocHx, which was reviewed with the patient by the RN. The patient's PCP is at the [facility] in [place]. Left Mid-Anterior Neck Pain Score (Numeric/FACES): 10 - Related Data Allergies Allergy/AdvReac Type Severity Reaction Status Date / Time Penicillins Allergy Cannot Verified 06/04/20 22:45 Remember Home Meds: Home Meds Albuterol/Ipratropium [Combivent Respimat] 2 puff IH BID 06/12/18 [History] Albuterol/Ipratropium [DuoNeb 3.0-0.5 MG/3 ML] 3 ml INH DAILY PRN 06/12/18 [History] Aspirin 81 mg PO DAILY 06/12/18 [History] Fish Oil/[place]-3 Fatty Acids [Fish Oil] 1 each PO DAILY 06/12/18 [History] Fluticasone Propion/Salmeterol [Advair 250-50 Diskus] 1 puff INH BID 06/12/18 [History] Mirtazapine 45 mg PO DAILY 06/12/18 [History] Montelukast [Singulair] 10 mg PO DAILY 06/12/18 [History] Pantoprazole [ProTONIX] 40 mg PO DAILY 06/12/18 [History] Vit #76/Iron,Carb/Fa [Prenatabs Rx] 1 each PO DAILY 06/12/18 [History] dilTIAZem HCL [Cardizem] 30 mg PO DAILY 06/12/18 [History] Orphenadrine [Norflex] 1 tab PO Q12H PRN #14 tab.er 06/05/20 [Rx] Past Medical History HEENT History: Reports: Impaired Vision (wears glasses) Cardiovascular History: Reports: Afib, Angina, High Cholesterol, Hypertension, [place] Respiratory History: Reports: Asthma, Bronchitis, Recurrent, COPD Gastrointestinal History: Reports: GERD Genitourinary History: Reports: Chronic Renal Insuffiency, Renal Calculus [employer]NAGEMENT History: Reports: Musculoskeletal History: Reports: Arthritis, Osteoporosis Neurological History: Reports: Concussion Psychiatric History: Reports: Anxiety, Bipolar Endocrine/Metabolic History: Reports: Diabetes, Type II Other Endocrine/Metabolic History: reports was diabetic before lost weight 1 year ago. Denies DM at this time. Hematologic History: Reports: Blood Transfusion(s) Immunologic History: Reports: None Oncologic (Cancer) History: Reports: None Dermatologic History: Reports: Eczema, Other (See Below) Other Dermatologic History: infected toenail, diabetic foot ulcers, current cellulitis and osteomylitis - Infectious Disease History Infectious Disease History: Reports: Chicken Pox, Mumps, Rubella - Past Surgical History HEENT Surgical History: Reports: Oral Surgery, Tonsillectomy Cardiovascular Surgical History: Reports: None GI Surgical History: Reports: Appendectomy Other GI Surgeries/Procedures: Gall stones removed. Female Surgical History: Reports: Section Endocrine Surgical History: Reports: None Neurological Surgical History: Reports: None Musculoskeletal Surgical History: Reports: None Dermatological Surgical History: Reports: None Social & Family History - Tobacco Use Tobacco Use Status *Q: Current Every Day Tobacco User Years of Tobacco use: 54 Packs/Tins Daily: 0.5 Packs/Tins Daily Comment: Down from 2 ppd Tobacco Use Comment: Started smoking at 15 yrs old - Caffeine Use Caffeine Use: Reports: Coffee Other Caffeine Use: 1 pot a day Caffeine Use Comment: 5 cups - Alcohol Use Alcohol Use History: No - Recreational Drug Use Recreational Drug Use: No - Living Situation & Occupation Living situation: Reports: , with Spouse, with Family (3 grandchildren + 1 great-grandchild) Occupation: Retired ED ROS GENERAL - Review of Systems Review Of Systems: Comprehensive ROS is negative, except as noted in HPI. ED EXAM, GENERAL - Physical Exam Exam: See Below Exam Limited By: No Limitations General Appearance: Alert, No Apparent Distress, Thin Eye Exam: Bilateral Eye: EOMI, Normal Inspection Ears: Normal External Exam, Normal Canal, Hearing Grossly Normal, Normal TMs Nose: Normal Inspection, Normal Mucosa, No Blood Throat/Mouth: Normal Inspection, Normal Lips, Normal Teeth, Normal Gums, Normal Oropharynx, Normal Voice, No Airway Compromise Head: Atraumatic, Normocephalic Neck: Normal Inspection, Supple, Full Range of Motion, Other (Reproducible tenderness to palpation of the sternocleidomastoid insertion to the left mastoid process. The aspirated process itself appears to be normal, with no palpable abnormalities. Pain is induced with passive turning of the head to the right or active tipping the left ear to the shoulder. T). No: Lymphadenopathy (L), Lymphadenopathy (R) Respiratory/Chest: No Respiratory Distress, Lungs Clear, Normal Breath Sounds, No Accessory Muscle Use Cardiovascular: Normal Peripheral Pulses, Regular Rate, Rhythm, No Edema, No Gallop, No JVD, No Murmur, No Rub Peripheral Pulses: 3+: Radial (L), Radial (R) GI/Abdominal: Normal Bowel Sounds, Soft, Non-Tender, No Organomegaly, No Distention, No Abnormal Bruit, No Mass Back Exam: Normal Inspection, Full Range of Motion, NT Extremities: Normal Inspection, Normal Range of Motion, No Pedal Edema, Normal Capillary Refill Neurological: Alert, Oriented, Normal Cognition, No Motor/Sensory Deficits Psychiatric: Normal Affect Skin Exam: Warm, Dry, Intact, Normal Color, No Rash Course - Vital Signs Last Recorded V/S: Last Vital Signs Temp 36.2 C 06/04/20 22:47 Pulse 100 06/04/20 22:47 Resp 16 06/04/20 22:47 BP 104/71 06/04/20 22:47 Pulse Ox 97 06/04/20 22:47 - Orders/Labs/Meds Meds: Medications Discontinued Medications Generic Name Dose Route Start Last Admin Trade Name Sharon PRN Reason Stop Dose Admin Ibuprofen 600 mg 06/05/20 00:26 06/05/20 00:45 Ibuprofen 600 Mg Tab PO 06/05/20 00:27 600 mg ONETIME ONE Administration Orphenadrine Citrate 100 mg 06/05/20 00:26 06/05/20 00:45 Orphenadrine 100 Mg Tab.Er PO 06/05/20 00:27 100 mg ONETIME STA Administration - Re-Assessments/Exams Free Text/Narrative Re-Assessment/Exam: 06/05/20 00:27 As above, the patient has been experiencing intermittent pain behind her left ear since Tuesday. It is made worse if she stands up, and is made better if she elevates her feet. She reports having a painful lump behind her ear, and on examination, the lump that she is referring to is her mastoid process, which looks and feels to be completely normal. Palpation of the tendon of the sternocleidomastoid, however, reproduces the tenderness, as does pulling on the body of the muscle, passively turning the patient's head to the right (stretching the muscle and tendon), or having the patient actively try to tip her left ear to her shoulder (actively angel the muscle). There is no associated lymphadenopathy, and the patient's oropharyngeal examination is unremarkable. No recent fever, therefore I do not suspect an infectious cause of what appears to be tendinitis. I am therefore recommending ibuprofen. The patient's asked about a muscle relaxant. I explained that there is no tenderness to the body of the muscle, therefore I do not think that her pain is due to a muscle spasm, however, I do not see any harm in her taking some Norflex, so I have added that, as well. She can try either heat or ice, although studies of tendinitis have not shown any definitive benefit to either. If her symptoms do not improve, I would like her to follow-up in the clinic, which I will refer her to. Departure - Departure Time of Disposition: 00:30 Disposition: Home, Self-Care 01 Condition: Good Clinical Impression: Musculoskeletal disorder involving sternocleidomastoid - Discharge Information *PRESCRIPTION DRUG MONITORING PROGRAM REVIEWED*: Not Applicable *COPY OF PRESCRIPTION DRUG MONITORING REPORT IN PATIENT DIONISIO: Not Applicable Prescriptions: Orphenadrine [Norflex] 1 tab PO Q12H PRN #14 tab.er PRN Reason: Muscle Spasm Instructions: Facet Syndrome Referrals: Sweta Paz NP [Nurse Practitioner] - Forms: ED Department Discharge Additional Instructions: You were seen in the emergency room for 3 days of pain felt behind her left ear, especially when you stand up. Based on your history and physical examination, you are suffering from tendinitis of your left sternocleidomastoid muscle. You have been started on the muscle relaxant Norflex, and a prescription for Norflex has been sent to the [facility] in [place]. Take 1 tablet of Norflex every 12 hours, as prescribed. Norflex works well with ibuprofen. You may take 2 to 3 tablets (400-600 mg) of [id number]-[id number] ibuprofen up to every 8 hours, with food, as needed for discomfort. If your symptoms persist, please follow-up with Sweta Paz NP, or one of the other providers in the clinic, for further evaluation. If any other problems, please do not hesitate to return to the ER. Sepsis Event Note (ED) - Evaluation Sepsis Screening Result: No Definite Risk - Focused Exam Vital Signs: Vital Signs Temp Pulse Resp BP Pulse Ox 06/04/20 22:47 36.2 C 100 16 104/71 97
== END 2020-06-05 00:50 | disposition home or self-care (01) ==
LOC: JD.ED 22:30
DX: M79.89 Other specified soft tissue disorders (principal); I48.91 Unspecified atrial fibrillation; I25.2 Old myocardial infarction; J44.9 Chronic obstructive pulmonary disease, unspecified; I12.9 Hypertensive chronic kidney disease with stage 1 through stage 4 chronic kidney disease, or unspecified chronic kidney disease; N18.9 Chronic kidney disease, unspecified; E11.22 Type 2 diabetes mellitus with diabetic chronic kidney disease; M19.90 Unspecified osteoarthritis, unspecified site; Z88.0 Allergy status to penicillin; Z79.82 Long term (current) use of aspirin; Z79.899 Other long term (current) drug therapy
CPT/HCPCS: 99283; A9270